=== PATIENT | female | born 1940 | race Caucasian/White ===

== ENCOUNTER 2016-12-24 15:28 | Inpatient (IN) ==
--- NOTE | 2016-12-24 15:54 | Emergency Department Note ---
Lower Extremity Injury HPI - General Chief Complaint: Extremity Injury, Lower Stated Complaint: R hip pain Time Seen by Provider: 12/24/16 15:41 Source: patient Mode of arrival: EMS Limitations: no limitations - History of Present Illness HPI Narrative: 76-year-old female presents with right hip pain from [place]. She is brought in by EMS. She is here for an open reduction internal fixation of her right hip. She fell this morning around 10:00 because she tripped while pivoting on her prosthetic left foot. 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 She also has a history of hypertension and takes blood pressure medicine. Her right hip is externally rotated. She denies any other symptoms such as chest pain, shortness of breath. She has been seen by Dr. Herndon and Dr. Hopkins for surgery today. The last time she ate was earlier this morning around 8:00. She denies history of ME, stroke, seizure. - Related Data Home Medications Medication Instructions Recorded Confirmed Aspirin [Ecotrin] 81 mg PO DAILY 12/24/16 12/24/16 Cholecalciferol (Vitamin D3) 1,000 unit PO DAILY 12/24/16 12/24/16 [Vitamin D] Cinnamon Bark [Cinnamon] 500 mg PO DAILY 12/24/16 12/24/16 Vitamin E Mixed [Vitamin E] 400 unit PO DAILY 12/24/16 12/24/16 amLODIPine [Norvasc] 10 mg PO DAILY 12/24/16 12/24/16 hydrALAZINE HCL [Hydralazine HCl] 50 mg PO DAILY 12/24/16 12/24/16 Allergies Allergy/AdvReac Type Severity Reaction Status Date / Time No Known Drug Allergies Allergy Unverified 12/24/16 15:35 Review of Systems All systems ED: reviewed and negative except as stated. 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 Right hip tender laterally. Externally rotated. Normal pulse. Limitations: no limitations General appearance: alert, in no apparent distress Head: atraumatic Eye: Present: normal appearance. Absent: conjunctival injection Neck: Present: normal inspection, full ROM Chest: Present: normal inspection, symmetric chest wall rise Respiratory: Present: normal lung sounds bilaterally Cardiovascular: Present: tachycardia, normal heart sounds Abdominal: Present: soft, normal bowel sounds. Absent: tenderness Neurological: Present: alert, oriented X3 Psychiatric: Present: normal affect, normal mood Skin: Present: warm, dry, intact Course Course Narrative: She has had a workup by [facility]. She will be taken to surgery. Vital Signs Pulse Rate 91 H 12/24/16 15:28 Respiratory Rate 16 12/24/16 15:28 Blood Pressure 198/95 12/24/16 15:28 Pulse Oximetry (%) 100 12/24/16 15:28 Pulse Rate 91 H 12/24/16 15:28 Respiratory Rate 16 12/24/16 15:28 Blood Pressure 198/95 12/24/16 15:28 Pulse Oximetry (%) 100 12/24/16 15:28 Disposition Pt seen by ELEMENTARY SECRETARY/PA only: Yes Clinical Impression: Fracture of hip Disposition: Xfer As Inpt ([facility]) Condition: Fair
[2016-12-24] MEDS ORDERED: ceFAZolin 1 GM VIAL IV SCH (16:15)
--- NOTE | 2016-12-24 16:22 | Consultation ---
DATE OF CONSULTATION: 12/24/2016 The patient is a very pleasant 76-year-old with a chief complaint of right hip pain after a same-level fall seen at [facility], diagnosed with a femoral neck fracture, displaced. She has been fairly active, even though she is having no active chest pain or shortness of breath. PAST MEDICAL HISTORY: Includes hypertension, anemia, hyperthyroidism, diabetes mellitus type 2, a prior amputation on the left side. She has had prior osteomyelitis of the left foot that was treated with the above-mentioned amputation. MEDICATIONS: 1. Cinnamon Bark 500 mg q. day. 2. Vitamin D3 1000 mg tablet q. day. 3. Vitamin B12 500 mcg tablets daily. 4. Aspirin low-dose 81 mg tablet daily. 5. Triamcinolone cream twice a day to her leg. 6. Amlodipine tablet one tablet by mouth 10 mg. 7. Hydralazine 50 mg tablet p.o. 4 times daily for hypertension. IMMUNIZATIONS: Pneumovax, she refused in 2013. ALLERGIES: She knows no known drug allergies. PAST SURGICAL HISTORY: Include an amputation of the left lower extremity. PHYSICAL EXAMINATION: GENERAL: A very pleasant 76-year-old female, alert, cooperative, gives an excellent history. EXTREMITIES: Today she does have some numbness down the right leg. She notes this has been there for some time from a prior herniated disk. She also has an amputated left lower extremity. The right leg, however, is shortened and externally rotated consistent with a femoral neck fracture. Her foot is pink and warm. She can move her toes without difficulty. LUNGS: Clear to auscultation bilaterally. CARDIOVASCULAR: Irregular rate of about 95 with some irregular rhythm, sinus. ABDOMEN: Soft, nontender. SKIN: No lacerations or abrasions. DIAGNOSTIC STUDIES: Her x-rays of the right hip show a femoral neck fracture about 10 mm above the lesser trochanter. Some osteopenia is obviously noted. DIAGNOSIS: Femoral neck fracture, displaced. PLAN: Treatment will be a cemented hemiarthroplasty. KOBE:nelson Job ID: [id number] Doc ID: [id number] Erik Jaimes MD
--- NOTE | 2016-12-24 16:28 | Brief Operative Note ---
Date of procedure: 12/24/16 Pre-op diagnosis: Right femoral neck fx Post-op diagnosis: same Procedure: Right hip cemented andre arthroplasty Grafts/Implants: Yes Anesthesia: GETA Complications: none Surgeon: Erik Jaimes Switcher: Benny Lopez Estimated blood loss (cc): 50 Specimens Removed/Pathology: none sent Condition: stable Disposition: PACU
[2016-12-24] MEDS ORDERED: TRANEXAMIC ACID 1,000 MG/10 ML VIAL IV ONE ×2 (16:36→16:45)
[2016-12-24] MEDS ORDERED: HYDROmorphone 2 MG/ML SYRINGE IV PRN ×2 (16:36→17:11)
[2016-12-24] MEDS ORDERED: POLYETHYLENE GLYCOL 3350 17 GM PACKET PO PRN (16:36)
[2016-12-24] MEDS ORDERED: ACETAMINOPHEN 325 MG TABLET PO PRN (16:36)
[2016-12-24] MEDS ORDERED: HYDROcodone/APAP 10/325MG TABLET PO PRN (16:36)
[2016-12-24] MEDS ORDERED: FLEETS ADULT ENEMA PR PRN (16:36)
[2016-12-24] MEDS ORDERED: BISACODYL 10 MG SUPP.RECT PR PRN (16:36)
[2016-12-24] MEDS ORDERED: BENZOCAINE/MENTHOL 1 LOZENGE PO PRN ×2 (16:36→17:11)
[2016-12-24] MEDS ORDERED: MAGNESIUM HYDROXIDE 30 ML ORAL.SUSP PO PRN (16:36)
[2016-12-24] MEDS ORDERED: KETOROLAC 15 MG/ML VIAL IV PRN (16:36)
[2016-12-24] MEDS ORDERED: MIDAZOLAM 2 MG/2 ML VIAL IV ONE (16:45)
[2016-12-24] MEDS ORDERED: KETAMINE 100 MG/ML ML IV ONE (16:45)
[2016-12-24] MEDS ORDERED: ONDANSETRON 4 MG/2 ML VIAL IV ONE (16:45)
[2016-12-24] MEDS ORDERED: ROPIVACAINE HCL/PF 30 ML VIAL IJ ONE (16:45)
[2016-12-24] MEDS ORDERED: LIDOCAINE HCL/PF 100 MG/5 ML SYRINGE IV ONE (16:45)
[2016-12-24] MEDS ORDERED: GLYCOPYRROLATE 0.2 MG/ML VIAL IV ONE (16:45)
[2016-12-24] MEDS ORDERED: PROPOFOL 200 MG/20 ML VIAL IV ONE (16:45)
[2016-12-24] MEDS ORDERED: IPRATROPIUM/ALBUTEROL 3 ML AMPUL.NEB NEB PRN (17:11)
[2016-12-24] MEDS ORDERED: METHOCARBAMOL 1,000 MG/10 ML VIAL IV PRN (17:11)
[2016-12-24] MEDS ORDERED: fentaNYL 100 MCG/2 ML VIAL IV PRN (17:11)
[2016-12-24] MEDS ORDERED: ONDANSETRON 4 MG/2 ML VIAL IV PRN (17:11)
[2016-12-24] MEDS ORDERED: ePHEDrine 50 MG/ML AMPUL IV PRN (17:11)
[2016-12-24] MEDS ORDERED: LACTATED RINGERS 1,000 ML IV SCH (17:15)
[2016-12-24] MEDS ORDERED: GENTAMICIN SULFATE 800 MG/20 ML VIAL IR ONE (17:32)
[2016-12-24] MEDS ORDERED: EPINEPHrine 1 MG/ML AMPUL IJ ONE (18:15)
[2016-12-24] MEDS ORDERED: METOPROLOL TARTRATE 5 MG/5 ML VIAL IV ONE ×2 (18:27→18:40)
--- NOTE | 2016-12-24 18:28 | XRay Report ---
CLINICAL INFORMATION: Postop total hip prostheses COMPARISON: None. FINDINGS: ] Right hip prostheses anatomically aligned. No osseous abnormality. [Both SI joints are unremarkable. Soft tissue swelling over the surgical site seen as expected IMPRESSION: Negative Interpreted and Authenticated by: Ramu Woods 12/24/16
[2016-12-24] MEDS ORDERED: fentaNYL 100 MCG/2 ML VIAL IV ONE (18:32)
[2016-12-24] MEDS ORDERED: hydrALAZINE 20 MG/ML VIAL IV ONE (18:50)
[2016-12-24] MEDS: ACETAMINOPHEN 1,000 MG/100 ML BOTTLE IV SCH (18:50)
[2016-12-24] MEDS: 0.45 % SODIUM CHLORIDE 1,000 ML IV SCH (20:00)
[2016-12-24] MEDS ORDERED: TEMAZEPAM 15 MG CAPSULE PO PRN (21:00)
[2016-12-24] MEDS: 0.9 % SODIUM CHLORIDE 10 ML SYRINGE IV SCH (22:44)
[2016-12-24] MEDS: SENNOSIDES 1 TABLET PO SCH (22:54)
[2016-12-24] MEDS: ASPIRIN 325 MG ENTERIC COATED TABLET PO SCH (22:55)
[2016-12-24] MEDS: DOCUSATE SODIUM 100 MG CAPSULE PO SCH (22:55)
[2016-12-25] MEDS: ACETAMINOPHEN 1,000 MG/100 ML BOTTLE IV SCH ×3 (01:08→12:05)
[2016-12-25] MEDS: 0.45 % SODIUM CHLORIDE 1,000 ML IV SCH ×4 (04:15→20:55)
[2016-12-25] MEDS: 0.9 % SODIUM CHLORIDE 10 ML SYRINGE IV SCH ×4 (06:00→20:55)
[2016-12-25] MEDS: ONDANSETRON 4 MG/2 ML VIAL IV PRN ×4 (07:30→23:30)
[2016-12-25] MEDS ORDERED: NON FORMULARY MEDICATION 1 DOSE MISCELL (Aspirin [Ecotrin] 81 MG) PO SCH (09:00)
--- NOTE | 2016-12-25 09:53 | Orthopedic Progress Note ---
Subjective Patient information: Note initiated : 12/25/16 at 9:51 am Service Date, if different from initiated Date: [] Patient: Juliann Maravilla 76 y/o F admitted on 12/24/16 for R hip pain. Chief Complaint: [no cp and no sob but feels good] Objective Vital signs: Vital Signs Temp Pulse Pulse Pulse Resp BP BP 12/25/16 08:00 98.7 F 80 12 161/77 12/25/16 04:00 97.1 F 74 14 136/77 12/25/16 00:00 97.8 F 80 18 146/81 12/24/16 21:15 92 H 16 152/75 12/24/16 20:45 94 H 16 153/74 12/24/16 20:15 94 H 16 148/73 12/24/16 20:00 97.8 F 96 H 18 153/75 12/24/16 19:45 97 H 18 160/76 12/24/16 19:30 95 H 18 154/76 12/24/16 19:15 97.8 F 95 H 18 166/79 12/24/16 18:58 98.1 F 93 H 16 193/91 12/24/16 18:21 98.1 F 99 H 16 210/98 12/24/16 18:06 98.1 F 99 H 16 179/100 12/24/16 16:20 91 H 16 198/95 12/24/16 15:28 91 H 16 198/95 Pulse Ox 12/25/16 08:00 96 12/25/16 04:00 97 12/25/16 00:00 96 12/24/16 21:15 98 12/24/16 20:45 97 12/24/16 20:15 97 12/24/16 20:00 96 12/24/16 19:45 96 12/24/16 19:30 96 12/24/16 19:15 96 12/24/16 18:58 18 L 12/24/16 18:21 18 L 12/24/16 18:06 18 L 12/24/16 16:20 100 12/24/16 15:28 100 Intake and Output 12/24/16 12/25/16 12/25/16 21:59 05:59 13:59 Intake Total 1300 / 1300 200 / 200 1000 / 1000 Output Total 100 / 100 Balance 1300 / 1300 100 / 100 1000 / 1000 Intake: IV 100 / 100 100 / 100 1000 / 1000 Sodium Chloride 0.45% 1,000 ml 1000 / 1000 @ 100 mls/hr IV .Q10H ALIYAH Rx#: [id number] Oral 100 / 100 Other 1200 / 1200 Output: Urine Catheter Amount 100 / 100 Other: Weight 180 lb Intake & Output: Intake & Output 12/24/16 12/25/16 12/25/16 21:59 05:59 13:59 Intake Total 1300 / 1300 200 / 200 1000 / 1000 Output Total 100 / 100 Balance 1300 / 1300 100 / 100 1000 / 1000 Weight 180 lb Intake: IV 100 / 100 100 / 100 1000 / 1000 Sodium Chloride 0.45% 1,000 ml 1000 / 1000 @ 100 mls/hr IV .Q10H ALIYAH Rx#: [id number] Oral 100 / 100 Other 1200 / 1200 Output: Urine Catheter Amount 100 / 100 Incision: Yes healing Incision clean and dry: Yes Dressing: Yes clean Weight bearing status: full Neurological exam IM: Yes oriented X3, Yes neurovascular intact Extremities exam IM: Yes Foot pink and warm (low hct will monitor and low kidney function will monitor and consult if not improved), Yes neurovascular intact - Labs CBC & BMP: 12/25/16 04:20 Labs: Orthopedic Labs 12/24/16 15:50 POC PT 17.6 H POC INR 1.5 H 12/25/16 04:20 Hct 27.3 L
[2016-12-25] MEDS: amLODIPine 10 MG TABLET PO SCH (10:48)
[2016-12-25] MEDS: hydrALAZINE 25 MG TABLET PO SCH (10:48)
[2016-12-25] MEDS: DOCUSATE SODIUM 100 MG CAPSULE PO SCH ×2 (10:49→20:55)
[2016-12-25] MEDS: ASPIRIN 325 MG ENTERIC COATED TABLET PO SCH ×2 (10:49→20:55)
[2016-12-25] MEDS: VITAMIN D3 1,000 UNIT TABLET PO SCH (10:56)
[2016-12-25] MEDS: VITAMIN E (DL,TOCOPHERYL ACET) 400 UNIT CAPSULE PO SCH (10:56)
[2016-12-25] MEDS: CINNAMON BARK 500 MG PO SCH (10:57)
[2016-12-25] MEDS ORDERED: 0.9 % SODIUM CHLORIDE 250 ML IV ONE (15:56)
[2016-12-25] MEDS: SENNOSIDES 1 TABLET PO SCH (20:55)
[2016-12-26] MEDS: 0.45 % SODIUM CHLORIDE 1,000 ML IV SCH ×2 (05:16→15:40)
[2016-12-26] MEDS: 0.9 % SODIUM CHLORIDE 10 ML SYRINGE IV SCH ×3 (05:29→23:01)
[2016-12-26 06:38] LABS: Blood Urea Nitrogen 64 mg/dl (8-23)
[2016-12-26] MEDS: VITAMIN E (DL,TOCOPHERYL ACET) 400 UNIT CAPSULE PO SCH (10:07)
[2016-12-26] MEDS: hydrALAZINE 25 MG TABLET PO SCH (10:08)
[2016-12-26] MEDS: ASPIRIN 325 MG ENTERIC COATED TABLET PO SCH ×2 (10:08→23:12)
[2016-12-26] MEDS: VITAMIN D3 1,000 UNIT TABLET PO SCH (10:08)
[2016-12-26] MEDS: DOCUSATE SODIUM 100 MG CAPSULE PO SCH ×2 (10:08→23:13)
[2016-12-26] MEDS: amLODIPine 10 MG TABLET PO SCH (10:08)
--- NOTE | 2016-12-26 10:33 | Orthopedic Progress Note ---
Subjective Patient information: Note initiated : 12/26/16 at 10:31 am Service Date, if different from initiated Date: [] Patient: Juliann Maravilla 76 y/o F admitted on 12/24/16 for R hip pain. Chief Complaint: [feeling better and no nausea but slow to walk and no sob] Objective Vital signs: Vital Signs Temp Pulse Pulse Resp BP BP Pulse Ox 12/26/16 09:00 92 12/26/16 07:11 98.6 F 88 16 165/88 93 12/26/16 07:00 93 12/26/16 05:00 93 12/26/16 03:27 98.4 F 77 18 133/88 94 12/26/16 03:00 94 12/26/16 01:57 PDT 96 12/26/16 01:00 PDT 96 12/26/16 00:04 157/88 12/25/16 23:40 174/92 12/25/16 23:28 99.1 F H 86 19 167/101 97 12/25/16 23:00 98 12/25/16 21:00 94 12/25/16 20:00 99.1 F H 86 17 153/92 94 12/25/16 19:00 94 12/25/16 17:00 97 12/25/16 15:43 97.7 F 16 171/82 94 12/25/16 15:00 94 12/25/16 13:55 98.0 F 78 13 165/86 94 12/25/16 13:00 94 12/25/16 11:33 96 Intake and Output 12/25/16 12/26/16 12/26/16 22:59 05:59 13:59 Intake Total Output Total Balance Intake: IV Sodium Chloride 0.45% 1,000 ml @ 100 mls/hr IV .Q10H ALIYAH Rx#: [id number] Oral Output: Urine Catheter Amount Emesis Other: Weight Intake & Output: Intake & Output 12/25/16 12/26/16 12/26/16 22:59 05:59 13:59 Intake Total Output Total Balance Weight Intake: IV Sodium Chloride 0.45% 1,000 ml @ 100 mls/hr IV .Q10H ALIYAH Rx#: [id number] Oral Output: Urine Catheter Amount Emesis Incision: Yes healing Incision clean and dry: Yes Dressing: Yes clean Weight bearing status: full Neurological exam IM: Yes oriented X3, Yes neurovascular intact Extremities exam IM: Yes Foot pink and warm (bollus normal saline 250 cc now may need dc to care center), Yes neurovascular intact - Labs CBC & BMP: 12/25/16 04:20 12/26/16 04:15 Labs: Orthopedic Labs 12/24/16 15:50 POC PT 17.6 H POC INR 1.5 H 12/25/16 04:20 Hct 27.3 L
--- NOTE | 2016-12-26 10:41 | Discharge Summary ---
Ortho Discharge - CLAY - Patient Instructions Diet: Regular Diet Activity: activity as tolerated, weight bearing as tolerated Total Hip Protocol: Follow activity instructions as provided by Physical Therapy. Dressing Care: Rober Ag - leave on for 5 days Additional Instructions: POD #2: Dressing changed by nurse and all drains have been removed. Follow up with Physical Therapy. Instructed on ROM protocol. Anticoagulation therapy risks and benefits explained. May shower with dressing covered or water proof dressing. If wound dressing becomes black, remove dressing. Pathology and risks explained. Follow up with our office in 2 weeks - Follow Up Plan Disposition: Xfer SNF Prognosis: Fair Rehab Potential: Good I certify that the patient requires SNF services: Yes Overall status at discharge: patient is progressing back to baseline - Orders For Discharge Additional Discharge Orders: Physical Therapy at Discharge - CLAY Location: Determined By Patient Toilet Riser Discharge Order Location: Determined By Patient Walker Location: Determined By Patient
[2016-12-26] MEDS ORDERED: 0.9 % SODIUM CHLORIDE 250 ML IV ONE (11:48)
[2016-12-26] MEDS: CINNAMON BARK 500 MG PO SCH (11:51)
[2016-12-26] MEDS ORDERED: 0.9 % SODIUM CHLORIDE 1,000 ML IV SCH (12:00)
--- NOTE | 2016-12-26 14:17 | Internal Medicine Consult Note ---
Medical - CN: [facility] - Data of Consult Consult date: 12/26/16 Requesting Physician: Erik Jaimes Family Provider: RAMIN COCHRAN - Consult Narrative Reason for consult: Renal Failure History of present illness: Ms. Maravilla is a 76 year old Female presented to this hospital from outside facility, [facility], with creat of 4.06, the patient underwent successful Right CLAY and is scheduled for discharge in AM to [facility] facility, The patient labs rechecked in the hospital showed creat of 4.0, bun of 64, K of 4.8, Medicine was consulted for further evaluation. The patient has a long standing history of CKD, based on her history and problem list it seems she has CKD stage 4, she is unaware of her kidney function levels, but has been following with Dr Davis (quick mixer operator) Last visit was 2-3 months ago, She has not seen him since, notes he prescribed her some medication which made her weak, and tried and also a pill which was large and very expensive, therefore stopped going to him? She is not sure what her baseline kidney function is, but notes that she has been eating and drinking well and has no problems passing urine. the patient labs 1 year ago showed renal function creat of 2.99 and BUN of 51, the patient has DM, HTN as the likely risk factors. AT present the patient has no acute concerns, she denies any chest pain, shortness of breath, abdominal pain, nausea or vomiting, has pacheco in place, has been voiding ok so before presentation. Denies any edema. 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; Medical - CN: Meds Home Medications Medication Instructions Recorded Confirmed Type Aspirin [Ecotrin] 81 mg PO DAILY 12/24/16 12/24/16 History Cholecalciferol (Vitamin D3) 1,000 unit PO DAILY 12/24/16 12/24/16 History [Vitamin D] Cinnamon Bark [Cinnamon] 500 mg PO DAILY 12/24/16 12/24/16 History Vitamin E Mixed [Vitamin E] 400 unit PO DAILY 12/24/16 12/24/16 History amLODIPine [Norvasc] 10 mg PO DAILY 12/24/16 12/24/16 History hydrALAZINE HCL [Hydralazine HCl] 50 mg PO DAILY 12/24/16 12/24/16 History Aspirin [Ecotrin] 325 mg PO DAILY #14 tab.ec 12/26/16 Rx Hydrocodone/APAP 7.5/325Mg [[place] 1 - 2 tab PO Q4HP PRN #60 tab 12/26/16 Rx 7.5/325Mg] Allergies Allergy/AdvReac Type Severity Reaction Status Date / Time No Known Drug Allergies Allergy Unverified 12/24/16 15:35 Medical - CN: Exam - Constitutional Vitals: Temp Pulse Resp BP Pulse Ox 98.2 F 91 H 14 166/91 92 12/26/16 11:11 12/26/16 11:11 12/26/16 11:11 12/26/16 11:11 12/26/16 09:00 Exam: GENERAL: The patient is a well-developed, well-nourished in no apparent distress. Is alert and oriented x3. VITAL SIGNS: Reviewed and as noted elsewhere. HEENT: Head is normocephalic and atraumatic. Extraocular muscles are intact. Pupils are equal, round, and reactive to light. Nares appeared normal. Mouth appears any without lesions. Mucous membranes are moist. NECK: Normal to inspection, Supple, No lymphadenopathy or thyromegaly. LUNGS: Air entry equal on both sides, no wheezing, crackles or rhonchi noted. No accessory muscles of respiration HEART: Regular rate and rhythm normal, S1 and S2 heard, no Gallop, S3 or Rub Noted, No Gross murmur heard. ABDOMEN: Soft, nontender, and nondistended. Positive bowel sounds. No hepatosplenomegaly was noted. EXTREMITIES: No cyanosis, clubbing, rash, lesions or edema. Left bka noted. NEUROLOGIC: Cranial nerves II through XII are grossly intact. Motor and Sensory System Grossly Intact PSYCHIATRIC: Normal affect, Normal Mood. Appropriate Behavior. SKIN: No ulceration or wounds noted, No jaundice, No rash noted. Medical - CN: Result - Labs CBC & Chem 7: 12/25/16 04:20 12/26/16 04:15 Labs: BMP 12/26/16 04:15 Sodium 131 L Potassium 4.8 Chloride 102 Carbon Dioxide 12 L BUN 64 H Creatinine 4.0 H Glucose 113 H Calcium 8.1 L Medical - CN: A/P - Narrative A/P Narrative: A/P Chronic Kidney Disease/ Renal failure: patient has history of CKD stage 4, follows with quick mixer operator. The patients last creat that we were able to verify was 2.99 done around 14 months ago, given her risk factors its likely that she has gradually progressed since then. We will try to obtain some more recent records to evaluate her recent renal function. Avoid Nephrotoxic meds, NSAIDs, Keep patient well hydrated The has a quick mixer operator and I have strongly educated the patient to follow up with him. DM- Glucose control is reasonable, sliding scale insulin Selected Entries 12/25/16 06:03 12/25/16 13:24 12/25/16 18:03 Finger Stick Blood Glucose 131 H 146 H 119 12/25/16 23:32 12/26/16 05:28 12/26/16 11:53 Finger Stick Blood Glucose 142 H 107 143 H HTN- BP on the higher end Will avoid adjusting home bp meds while acutely ill The rest of the patients chr condition seem stable. Will review recent labs and revisit the case if there is acute worsening of renal function, warranting any changes in meds. The patient would benefit from close follow up with Nephrology within 1-2 weeks of discharge.
[2016-12-26] MEDS ORDERED: DEXTROSE 31 GM ORAL.SUSP PO PRN ×2 (14:32→20:35)
[2016-12-26] MEDS ORDERED: DEXTROSE 50% 50 ML VIAL IV PRN ×2 (14:32→20:35)
[2016-12-26] MEDS ORDERED: INSULIN LISPRO 1 UNIT/0.01 ML UNIT SQ SCH (17:00)
[2016-12-26 18:01] LABS: Basophils # (Auto) 0 K/mcL (0.0-0.3); Basophils % (Auto) 0.1 % (0.0-2.0); Eosinophils # (Auto) 0 K/mcL (0.0-0.7); Eosinophils % (Auto) 0.5 % (0.0-7.0); Lymphocytes # (Auto) 0.6 K/mcL (1.5-4.8); Lymphocytes % (Auto) 5.4 % (15.5-49.0); Mean Cell Volume 87.2 fL (80.0-100.0); Mean Corpuscular HGB Conc 33.5 g/dL (31.0-36.0); Mean Corpuscular Hemoglobin 29.2 pg (26.0-34.0); Monocytes # (Auto) 0.5 K/mcL (0.1-0.9); Platelet Count 180 K/mcL (140-440); RBC 3.12 M/mcL (4.00-5.20); Red Cell Distribution Width 14.4 % (11.5-14.5)
[2016-12-26 18:24] LABS: ALT/SGPT 6 U/l (0-40); Albumin 3.1 gm/dL (3.2-5.2); Albumin/Globulin Ratio 0.9 (1.0-2.3); Alkaline Phosphatase 58 U/L (39-117); Bilirubin,Direct < 0.2 mg/dL (0.0-0.3); Blood Urea Nitrogen 65 mg/dl (8-23); Gamma Glutamyl Transpeptidase 12 U/L (5-36); Magnesium 1.8 mg/dL (1.6-2.5); Uric Acid 7.3 mg/dL (2.5-8.0)
[2016-12-26] MEDS ORDERED: SODIUM BICARBONATE VIAL 150 MEQ in DEXTROSE 5% IN WATER 850 ML IV SCH (19:00)
[2016-12-26] MEDS ORDERED: POLYETHYLENE GLYCOL 3350 17 GM PACKET PO PRN (20:35)
[2016-12-26] MEDS ORDERED: ACETAMINOPHEN 325 MG TABLET PO PRN (20:35)
[2016-12-26] MEDS ORDERED: MAGNESIUM HYDROXIDE 30 ML ORAL.SUSP PO PRN (20:35)
[2016-12-26] MEDS ORDERED: BISACODYL 10 MG SUPP.RECT PR PRN (20:35)
[2016-12-26] MEDS ORDERED: HYDROmorphone 2 MG/ML SYRINGE IV PRN (20:35)
[2016-12-26] MEDS ORDERED: TEMAZEPAM 15 MG CAPSULE PO PRN (20:35)
[2016-12-26] MEDS ORDERED: ONDANSETRON 4 MG/2 ML VIAL IV PRN (20:35)
[2016-12-26] MEDS ORDERED: BENZOCAINE/MENTHOL 1 LOZENGE PO PRN (20:35)
[2016-12-26] MEDS: SODIUM BICARBONATE VIAL 150 MEQ in DEXTROSE 5% IN WATER 850 ML IV SCH (21:30)
[2016-12-26] MEDS ORDERED: POTASSIUM CHLORIDE 20 MEQ in DEXTROSE 5% IN WATER 250 ML IV PRN (21:31)
[2016-12-26 22:31] LABS: ABG Methemoglobin 0.3 % (0.4-1.5); VBG HCO3 12.4 mmol/L (24.0-28.0); VBG Oxygen Saturation 76.6 % (40.0-70.0); VBG PCO2 30.5 mmHg (41.0-51.0); VBG PH 7.23 U (7.32-7.42); VBG PO2 48 mmHg (25-40); VBG Total CO2 13.3 mmol/L (25.0-29.0)
[2016-12-26] MEDS: INSULIN LISPRO 1 UNIT/0.01 ML UNIT SQ SCH (23:12)
[2016-12-26] MEDS: SENNOSIDES 1 TABLET PO SCH (23:15)
[2016-12-26] MEDS ORDERED: FUROSEMIDE 40 MG/4 ML VIAL IV ONE (23:18)
[2016-12-27] MEDS: FUROSEMIDE 40 MG/4 ML VIAL IV SCH ×4 (00:12→22:53)
[2016-12-27 01:37] LABS: Blood Urea Nitrogen 67 mg/dl (8-23)
[2016-12-27] MEDS: SODIUM BICARBONATE VIAL 150 MEQ in DEXTROSE 5% IN WATER 850 ML IV SCH ×4 (03:35→20:44)
[2016-12-27 05:48] LABS: Basophils # (Auto) 0 K/mcL (0.0-0.3); Basophils % (Auto) 0.1 % (0.0-2.0); Eosinophils # (Auto) 0.1 K/mcL (0.0-0.7); Eosinophils % (Auto) 1.2 % (0.0-7.0); Granulocytes % (Auto) 87.2 % (38.0-78.0); Lymphocytes # (Auto) 0.5 K/mcL (1.5-4.8); Lymphocytes % (Auto) 5.8 % (15.5-49.0); Mean Corpuscular HGB Conc 33.4 g/dL (31.0-36.0); Mean Corpuscular Hemoglobin 29.1 pg (26.0-34.0); Monocytes # (Auto) 0.5 K/mcL (0.1-0.9); Monocytes % (Auto) 5.7 % (1.0-12.0); Platelet Count 161 K/mcL (140-440); RBC 2.86 M/mcL (4.00-5.20)
[2016-12-27 06:56] LABS: ALT/SGPT < 5 U/l (0-40); Albumin 2.8 gm/dL (3.2-5.2); Albumin/Globulin Ratio 0.9 (1.0-2.3); Alkaline Phosphatase 54 U/L (39-117); Bilirubin,Direct < 0.2 mg/dL (0.0-0.3); Blood Urea Nitrogen 66 mg/dl (8-23); Gamma Glutamyl Transpeptidase 11 U/L (5-36); Magnesium 1.8 mg/dL (1.6-2.5); Uric Acid 7.3 mg/dL (2.5-8.0)
--- NOTE | 2016-12-27 07:02 | Operative Note ---
DATE OF OPERATION: 12/24/2016 PREOPERATIVE DIAGNOSIS: Right femoral neck fracture with a same level fall today. POSTOPERATIVE DIAGNOSIS: Right femoral neck fracture with a same level fall today. PROCEDURE: Right hip hemiarthroplasty with a superior posterior approach. SURGEON: Erik Jaimes MD SPIRAL WINDER: Saroj Lopez PA-C. ANESTHESIA: General LMA anesthesia. ANESTHETIS: Dr. Norris. ESTIMATED BLOOD LOSS: About 100 mL IMPLANTS: A size 5 cemented stem from [employer] with a collar with a neutral neck length and a 47 mm head. FINDINGS: A very pleasant 76-year-old female who had a right hip that was obviously deformed. After being sterilely prepped and draped, we confirmed this as the operative site by initials and timeout and x-rays. Once confirmed, we then noted the patient received 1 gram of Ancef and 1 gram of tranexamic acid. Once this was done, we then made a superior posterior approach through the muscle layer, placed a Charnley retractor and exposed the superior capsule, which was then released. We then made the neck cut at 10 mm proximal to the lesser trochanter. Once done, we then removed the ball without difficulty. We then removed any remnants or debris intraarticularly and then broached the femur, broached up to a size 5 and trialed a size 5 with a neutral neck length which seemed to be the most appropriate and seemed to be very stable through range of motion. We irrigated thoroughly and then I cemented into place a size 5 stem, retrialed the neutral neck length. This seemed to be the appropriate size up to 80 to 90 degrees of internal rotation before any subluxation. The tension appeared to be very nice and we could make leg length measurements at the knee only. We irrigated thoroughly and implanted a neutral neck length with a 47 mm unipolar ball. The capsule was then repaired after reducing the hip and we repaired the piriformis and obturator internus. We irrigated thoroughly and repaired the fascial layer with #1 StrataFix, closed the skin with 0 Vicryl and Faustino's fascia and 2-0 Vicryl in the subcutaneous and maricarmen superficially. The patient tolerated this well. Sterile bandage was applied. RBH:atilio Job ID: [id number] Doc ID: [id number] Erik Jaimes MD
[2016-12-27] MEDS: 0.9 % SODIUM CHLORIDE 10 ML SYRINGE IV SCH ×3 (07:07→20:56)
[2016-12-27] MEDS: INSULIN LISPRO 1 UNIT/0.01 ML UNIT SQ SCH ×5 (09:18→20:56)
[2016-12-27] MEDS: hydrALAZINE 25 MG TABLET PO SCH (09:19)
[2016-12-27] MEDS: DOCUSATE SODIUM 100 MG CAPSULE PO SCH ×2 (09:19→20:55)
[2016-12-27] MEDS: VITAMIN D3 1,000 UNIT TABLET PO SCH ×2 (09:19→09:43)
[2016-12-27] MEDS: VITAMIN E (DL,TOCOPHERYL ACET) 400 UNIT CAPSULE PO SCH ×2 (09:19→09:44)
[2016-12-27] MEDS: ASPIRIN 325 MG ENTERIC COATED TABLET PO SCH ×2 (09:19→20:55)
[2016-12-27] MEDS: amLODIPine 10 MG TABLET PO SCH (09:19)
[2016-12-27] MEDS: [UNRECOGNIZED DRUG - OTHER] PO SCH (09:43)
--- NOTE | 2016-12-27 12:23 | Consultation ---
DATE OF CONSULTATION: 12/27/2016 REASON FOR CONSULTATION: Metabolic acidosis. The patient is a 76-year-old female with a past medical history significant for longstanding hypertension. She believes that she does not have diabetes and her blood sugar does not high either. I had seen her last time in 06/2015 in the office and then she has not had any followup since then. She had a fairly rapid decline in renal function with a serum creatinine of 0.9 in 06/2012, 1.34 in 08/2013 and 2.85 in 04/2015 and then 2.7 in 05/2015. She was on metformin and lisinopril which were discontinued. Since then she has not followed up with me. She was hospitalized for a right hip fracture. She had surgery and postoperatively labs were checked and she was found to have a serum creatinine of 4.0 with a CO2 of 12. Subsequently, it was 10 and phosphorus elevated at 6.0. For that reason, a renal artery consultation was obtained. PAST MEDICAL HISTORY: 1. Chronic kidney disease stage 4, severe. 2. Essential hypertension. 3. Type 2 diabetes, but she is not taking any medications and glipizide made her hypoglycemic in the past. 4. Atrial fib with two depolarizations. 5. Hyperlipidemia. 6. Anemia. 7. Pain in the left foot. 8. Hyperparathyroidism. PAST SURGICAL HISTORY: She did have a left BKA after an infection in her foot. FAMILY HISTORY: Mother had diabetes. SOCIAL HISTORY: The patient does not smoke. No alcohol. She has two children living with a spouse. She is . She is retired. ALLERGIES: No known drug allergies. CURRENT MEDICATIONS ON ADMISSION: 1. Amlodipine 10 mg once daily. 2. Enteric-coated aspirin 325 mg twice daily. 3. Hydralazine 50 mg. 4. Dilaudid p.r.n.4. 5. Vitamin D 1000 units daily. 6. Vitamin E 400 units once daily. PHYSICAL EXAMINATION: GENERAL: Alert, oriented x3 in no apparent distress. VITAL SIGNS: Blood pressure 166/89 with a pulse rate of 93 and temperature 99.0, pulse oximetry of 90% on 2 liters. HEENT: NC/AT. PERRL. EOMI. No pallor, no cyanosis and no icterus. Fundus examination is not performed. External canals and tympanic membranes normal. Oral cavity appears normal. Normal mucosa. NECK: Supple. No jugular venous distention. No lymphadenopathy. No thyromegaly. No carotid bruits. LUNGS: Decreased air entry bilaterally. No rales or rhonchi heard. CARDIAC: S1, S2 heard. No S3, S4. No murmurs. No rubs. ABDOMEN: Soft, nontender. No organomegaly. Positive bowel sounds. No mass. No rebound. EXTREMITIES: Showed trace edema. She has a left BKA. NEURO: Grossly intact. LABORATORY DATA: White count is 8.8 with hemoglobin of 8.3 and a platelet count of 161. Sodium 134, potassium 4.0, chloride 100, CO2 15, BUN 66 with a creatinine of 4.1, calcium is 7.6. LDH was _27 with an albumin of 2.8. ASSESSMENT AND PLAN: 1. Severe metabolic acidosis, possibly secondary to advanced kidney disease and also surgical stress. The lactic acid level was 0.7. Her VBG shows a pH of 7.23. Her pCO2 was 48. We started her on intravenous bicarbonate drip and she has done fairly well. She will be switched over to oral bicarbonate. 2. Chronic kidney disease with some deterioration, possibly related to surgery. Her blood pressures have been fairly stable. I will check an ultrasound of the kidneys and hepatitis serology. 3. Hypertension. Blood pressures are slightly high. I have started her on Lasix to help with her blood pressure. 4. It is possible that she would drop her potassium and correct her metabolic acidosis. I would continue with p.r.n. potassium needs. Thank you, Dr. Shabazz for referring this patient for consultation. ELIAN:atilio Job ID: [id number] Doc ID: [id number] Salomon Shabazz MD
--- NOTE | 2016-12-27 13:18 | Internal Med Progress Note ---
Medical - PN: Subj Patient information: Note initiated : 12/27/16 at 1:15 pm Service Date, if different from initiated Date: [] Patient: Juliann Maravilla 76 y/o F admitted on 12/24/16 for R Hip Pain/Right Femoral Neck Fracture. Chief Complaint: [] Interval history: Ms. Maravilla is a 76 year old Female presented to this hospital from outside facility, [facility], with creat of 4.06, the patient underwent successful Right CLAY and is scheduled for discharge in AM to SNF facility, The patient labs rechecked in the hospital showed creat of 4.0, bun of 64, K of 4.8, Medicine was consulted for further evaluation. The patient has a long standing history of CKD, based on her history and problem list it seems she has CKD stage 4, she is unaware of her kidney function levels, but has been following with Dr Davis (offset label rewinder) Last visit was 2-3 months ago, She has not seen him since, notes he prescribed her some medication which made her weak, and tried and also a pill which was large and very expensive, therefore stopped going to him? She is not sure what her baseline kidney function is, but notes that she has been eating and drinking well and has no problems passing urine. the patient labs 1 year ago showed renal function creat of 2.99 and BUN of 51, the patient has DM, HTN as the likely risk factors. AT present the patient has no acute concerns, she denies any chest pain, shortness of breath, abdominal pain, nausea or vomiting, has pacheco in place, has been voiding ok so before presentation. Denies any edema. December 27 Patient seen examined, patient this AM had no complaints, I reviewed the plan of c are with her and need for IV bicarbonate therapy, as well as follow up with a offset label rewinder. The patient and her did not believe that her kidney issues need to be addressed, They were willing to signout today and go home. 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 Pertinent ROS: Denies headache, dizziness Denies chest pain, palpitations Denies cough or shortness of breath Denies abdominal pain, nausea or vomiting. - Constitutional Vitals: Vital Signs Temp Pulse Resp BP Pulse Ox 99.2 F H 103 H 16 142/80 95 12/27/16 11:55 12/27/16 08:44 12/27/16 11:55 12/27/16 11:55 12/27/16 13:00 Period Temp Pulse Resp BP Sys/Olson Pulse Ox Last 24 Hr 98.0 F-100.6 F 88-103 15-24 133-166/75-89 88-99 Intake and Output 12/26/16 12/27/16 12/27/16 21:59 05:59 13:59 Intake Total 1653 / 1653 912 / 912 Output Total 450 / 450 685 / 685 450 / 450 Balance 1203 / 1203 227 / 227 -450 / -450 Weight 179 lb 14.4 oz Intake & Output: Intake & Output 12/26/16 12/27/16 12/27/16 21:59 05:59 13:59 Intake Total 1653 / 1653 912 / 912 Output Total 450 / 450 685 / 685 450 / 450 Balance 1203 / 1203 227 / 227 -450 / -450 Weight 179 lb 14.4 oz Intake: IV 933 / 933 912 / 912 Sodium Chloride 0.9% 1,000 ml @ 837 / 837 100 mls/hr IV .Q10H [facility] Rx#: [id number] Sodium Bicarbonate Vial 150 Meq 912 / 912 In Dextrose 5% in Water 850 ml @ 150 mls/hr IV Q20H [facility] Rx#: [id number] Oral 720 / 720 Output: Urine Catheter Amount 225 / 225 685 / 685 150 / 150 Void Amount 225 / 225 300 / 300 Other: Meal Dinner Breakfast Percent of Meal Consumed 100% 75% Feeding Ability Independent # Voids 1 Exam: Constitutional; Afebrile, cooperative, alert, not in distress. Eyes- No icterus, , No periorbital swelling Ears- Ext ear normal, hearing normal to conversation. Neck- Midline trachea, supple Respiratory system: Air Entry equal on both sides, No crackles or wheezing, no rhonchi. CVS- Rate rhythm regular, S1,S2 heard, no gallop, no rub. 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 Medical - PN: Obj Da - Labs CBC & Chem 7: 12/27/16 04:10 12/27/16 04:10 Labs: Abnormal Lab Results 12/27/16 12/27/16 12/26/16 04:10 04:10 23:00 RBC 2.86 L Hgb 8.3 L Hct 24.8 L Gran % 87.2 H Lymph % (Auto) 5.8 L Gran # Lymph # (Auto) 0.5 L POC PT POC INR ABG Methemoglobin VBG pH VBG pCO2 VBG pO2 VBG HCO3 VBG Total CO2 VBG O2 Saturation VBG Base Excess Carboxyhemoglobin Total Hemoglobin Sodium Carbon Dioxide 15 L 12 L Anion Gap 19.0 H 21.0 H BUN 66 H 67 H Creatinine 4.1 H 4.2 H Glucose 165 H 167 H Calcium 7.6 L 7.8 L Phosphorus 5.4 H AST Lactate Dehydrogenase 527 H Total Protein 5.8 L Albumin 2.8 L Albumin/Globulin Ratio 0.9 L 12/26/16 12/26/16 12/26/16 21:37 17:14 17:14 RBC 3.12 L Hgb 9.1 L Hct 27.2 L Gran % 89.0 H Lymph % (Auto) 5.4 L Gran # 9.4 H Lymph # (Auto) 0.6 L POC PT POC INR ABG Methemoglobin 0.3 L VBG pH 7.23 L VBG pCO2 30.5 L VBG pO2 48 H VBG HCO3 12.4 L VBG Total CO2 13.3 L VBG O2 Saturation 76.6 H VBG Base Excess -14.0 L Carboxyhemoglobin 2.9 H Total Hemoglobin 8.8 L Sodium 129 L Carbon Dioxide 10 L* Anion Gap 20.0 H BUN 65 H Creatinine 4.0 H Glucose 131 H Calcium 8.1 L Phosphorus 6.0 H* AST 46 H Lactate Dehydrogenase 622 H Total Protein Albumin 3.1 L Albumin/Globulin Ratio 0.9 L 12/26/16 12/25/16 12/24/16 04:15 04:20 15:50 RBC Hgb Hct 27.3 L Gran % Lymph % (Auto) Gran # Lymph # (Auto) POC PT 17.6 H POC INR 1.5 H ABG Methemoglobin VBG pH VBG pCO2 VBG pO2 VBG HCO3 VBG Total CO2 VBG O2 Saturation VBG Base Excess Carboxyhemoglobin Total Hemoglobin Sodium 131 L Carbon Dioxide 12 L Anion Gap 17.0 H BUN 64 H Creatinine 4.0 H Glucose 113 H Calcium 8.1 L Phosphorus AST Lactate Dehydrogenase Total Protein Albumin Albumin/Globulin Ratio Meds: Medications Acetaminophen (Tylenol) 650 mg PO Q6HP PRN PRN Reason: PAIN/FEVER > 101 Hydrocodone Bitart/Acetaminophen ([place] 10/325mg) 0 tab PO Q4HP PRN PRN Reason: Pain Amlodipine Besylate (Norvasc) 10 mg PO DAILY [facility] Last Admin: 12/27/16 09:19 Dose: 10 mg Aspirin (Ecotrin) 325 mg PO BID [facility] Last Admin: 12/27/16 09:19 Dose: 325 mg Bisacodyl (Dulcolax) 10 mg NC Q2-3DAYS PRN PRN Reason: Constipation Calcium Carbonate/Glycine (Tums) 1,500 mg CHEWED TIDCC [facility] Dextrose (Dextrose 50%) 0 ml IV UD PRN PRN Reason: Hypoglycemia Diagnostic Test (Pha) (Accu-Chek) 1 each FS ACHS [facility] Last Admin: 12/27/16 09:18 Dose: 1 each Docusate Sodium (Colace) 100 mg PO BID [facility] Last Admin: 12/27/16 09:19 Dose: 100 mg Furosemide (Lasix) 40 mg IV Q8 [facility] Last Admin: 12/27/16 07:06 Dose: 40 mg Glucose (Insta-Glucose) 15 gm PO PRN PRN PRN Reason: Hypoglycemia Hydralazine HCl (Apresoline) 50 mg PO DAILY [facility] Last Admin: 12/27/16 09:19 Dose: 50 mg Hydromorphone HCl (Dilaudid) 0 mg IV Q2HP PRN PRN Reason: Pain Potassium Chloride 20 meq/ (Dextrose) 260 mls @ 130 mls/hr IV PRN PRN PRN Reason: if K < 4 Sodium Bicarbonate 150 meq/ (Dextrose) 1,000 mls @ 150 mls/hr IV Q6H [facility] Last Admin: 12/27/16 07:06 Dose: Not Given Insulin Human Lispro (Humalog) 0 unit SQ ACHS [facility] PRN Reason: Protocol Last Admin: 12/27/16 09:44 Dose: Not Given Magnesium Hydroxide (Milk Of Magnesia) 30 ml PO BIDP PRN PRN Reason: Constipation Ondansetron HCl (Zofran) 4 mg IV Q4HP PRN PRN Reason: Nausea And Vomiting Cinnamon Bard 500 Mg (Capsule) 1 dose PO DAILY [facility] Last Admin: 12/27/16 09:43 Dose: Not Given Polyethylene Glycol (Miralax) 17 gm PO DAILYP PRN PRN Reason: Constipation Senna (Senokot) 2 tab PO HS [facility] Last Admin: 12/26/16 23:15 Dose: 2 tab Sodium Bicarbonate (Sodium Bicarbonate) 1,300 mg PO TID [facility] Sodium Chloride (Saline Flush) 10 ml IV Q8 [facility] Last Admin: 12/27/16 07:07 Dose: 10 ml Temazepam (Restoril) 15 mg PO HSP PRN PRN Reason: Insomnia Throat Lozenges (Cepacol) 1 lozenge PO PRN PRN PRN Reason: Sore Throat Vitamin D (Vitamin D3) 1,000 unit PO DAILY [facility] Last Admin: 12/27/16 09:43 Dose: Not Given Vitamin E (Vitamin E) 400 unit PO DAILY [facility] Last Admin: 12/27/16 09:44 Dose: Not Given - ABG Interpretation ABG results: 12/26/16 21:37 ABG Methemoglobin 0.3 L VBG pH 7.23 L VBG pCO2 30.5 L VBG pO2 48 H VBG HCO3 12.4 L VBG Total CO2 13.3 L VBG O2 Saturation 76.6 H VBG Base Excess -14.0 L Medical - PN: A/P - Time Spent With Patient Total time spent is greater than 50% in coordination of care (as documented) at patient's floor/unit and/or counseling patient: - Narrative A/P Narrative: A/P CKd stage 4 Right hip fracture s/p replacement Severe metabolic acidosis DM uncontrolled HTN HLD fever Plan Patient has severe acidosis secondary to his REnal failiure Appreciate nehprology input, on iv bicarbonate drip for now, will add oral meds, D/c drip in AM, patient will need bicarbonate supplementation as discharge check cxr for fever, check procalcitonin. atelectasiss? Cover glucose with insulin if patietn allows, Patient has declined the need for statin therapy. BP seems stable, continue hydralazine. DVT ASA 325bid as per Ortho protocol Renal CArb consistent Diet. Plan for d/c to SNF when off bicarb drip. Medical - PN: Qual - VTE Deep Vein Thrombosis/Pulmonary Embolism Present on Admission: No
[2016-12-27] MEDS: CALCIUM CARBONATE 500 MG TAB.CHEW CHEWED SCH ×3 (13:44→19:28)
[2016-12-27] MEDS: SODIUM BICARBONATE 650 MG TABLET PO SCH ×3 (13:52→20:55)
--- NOTE | 2016-12-27 13:58 | XRay Report ---
INDICATION: Fever TECHNIQUE: AP chest x-ray,portable semiupright COMPARISON: None FINDINGS:Slightly elevated left hemidiaphragm. Mild left basilar parenchymal density suggests atelectasis. Lungs are otherwise negative. Right lung is normal. Heart size is at the upper limits of normal. No pulmonary edema or pulmonary congestion. Deedee and mediastinum are negative. No evidence for pleural fluid IMPRESSION: 1. Mildly elevated left hemidiaphragm and mild left basilar atelectasis 2. Otherwise negative examination Interpreted and Authenticated by: Ramu Hidalgo 12/27/16
[2016-12-27 14:03] LABS: Blood Urea Nitrogen 68 mg/dl (8-23)
[2016-12-27] MEDS ORDERED: POTASSIUM CHLORIDE 20 MEQ TABLET PO ONE (14:31)
[2016-12-27] MEDS ORDERED: SODIUM BICARBONATE VIAL 150 MEQ in DEXTROSE 5% IN WATER 850 ML IV SCH (15:00)
[2016-12-27 19:13] LABS: Appearance,Urine HAZY; Bacteria,Urine 0 /hpf (0); Bilirubin,Urine NEG (NEG); Color,Urine STRAW; Glucose,Urine (UA) 50 mg/dL (NEG); Leukocyte Esterase,Urine 75 /uL (NEG); Mucus,Urine FEW /hpf (0); Nitrate,Urine NEG (NEG); Protein,Urine 100 mg/dL (NEG); Urine Blood 0.03 mg/dL (<0.03); Urine RBC 3 /hpf (0-1); Urine Squamous Epithelial Cell 2 /hpf (0-4); Urine WBC 34 /hpf (0-4); Urobilinogen,Urine NEG (NEG)
[2016-12-27] MEDS: SENNOSIDES 1 TABLET PO SCH (20:55)
[2016-12-28] MEDS ORDERED: METOPROLOL TARTRATE 5 MG/5 ML VIAL IV PRN (01:09)
[2016-12-28] MEDS ORDERED: METOPROLOL TARTRATE 5 MG/5 ML VIAL IV ONE ×3 (01:14→04:40)
[2016-12-28] MEDS ORDERED: MAGNESIUM SULFATE 8.12 MEQ in DEXTROSE 5% IN WATER 50 ML IV ONE (01:43)
[2016-12-28] MEDS ORDERED: MAGNESIUM SULFATE 8.12 MEQ/2 ML VIAL ONE (02:27)
[2016-12-28] MEDS: SODIUM BICARBONATE VIAL 150 MEQ in DEXTROSE 5% IN WATER 850 ML IV SCH ×2 (04:00→18:47)
[2016-12-28 06:36] LABS: Basophils # (Auto) 0 K/mcL (0.0-0.3); Basophils % (Auto) 0.1 % (0.0-2.0); Eosinophils # (Auto) 0.1 K/mcL (0.0-0.7); Eosinophils % (Auto) 1.7 % (0.0-7.0); Lymphocytes # (Auto) 0.4 K/mcL (1.5-4.8); Lymphocytes % (Auto) 4.5 % (15.5-49.0); Mean Cell Volume 87.3 fL (80.0-100.0); Mean Corpuscular HGB Conc 33.4 g/dL (31.0-36.0); Mean Corpuscular Hemoglobin 29.2 pg (26.0-34.0); Monocytes # (Auto) 0.5 K/mcL (0.1-0.9); Monocytes % (Auto) 5.7 % (1.0-12.0); Platelet Count 186 K/mcL (140-440); RBC 2.97 M/mcL (4.00-5.20); Red Cell Distribution Width 14.4 % (11.5-14.5)
[2016-12-28] MEDS: 0.9 % SODIUM CHLORIDE 10 ML SYRINGE IV SCH ×3 (06:36→23:03)
[2016-12-28] MEDS: FUROSEMIDE 40 MG/4 ML VIAL IV SCH ×2 (06:36→18:48)
[2016-12-28] MEDS: INSULIN LISPRO 1 UNIT/0.01 ML UNIT SQ SCH ×4 (07:21→21:09)
[2016-12-28 07:24] LABS: ALT/SGPT < 5 U/l (0-40); Albumin 2.8 gm/dL (3.2-5.2); Albumin/Globulin Ratio 0.9 (1.0-2.3); Alkaline Phosphatase 54 U/L (39-117); Bilirubin,Direct < 0.2 mg/dL (0.0-0.3); Blood Urea Nitrogen 66 mg/dl (8-23); Gamma Glutamyl Transpeptidase 10 U/L (5-36); Magnesium 1.9 mg/dL (1.6-2.5); Uric Acid 7.3 mg/dL (2.5-8.0)
[2016-12-28 07:25] LABS: Hepatitis A Antibody IgM NON REACTIVE (NEGATIVE); Hepatitis B Core IgM NON REACTIVE (NEGATIVE); Hepatitis B Surface Antigen NEGATIVE (NEGATIVE); Hepatitis C Virus Antibody NON REACTIVE (NEGATIVE)
[2016-12-28] MEDS: SODIUM BICARBONATE 650 MG TABLET PO SCH ×3 (08:01→21:08)
[2016-12-28] MEDS: VITAMIN E (DL,TOCOPHERYL ACET) 400 UNIT CAPSULE PO SCH (08:01)
[2016-12-28] MEDS: VITAMIN D3 1,000 UNIT TABLET PO SCH (08:01)
[2016-12-28] MEDS: hydrALAZINE 25 MG TABLET PO SCH (08:01)
[2016-12-28] MEDS: DOCUSATE SODIUM 100 MG CAPSULE PO SCH ×2 (08:01→21:08)
[2016-12-28] MEDS: CALCIUM CARBONATE 500 MG TAB.CHEW CHEWED SCH ×3 (08:01→18:35)
[2016-12-28] MEDS: amLODIPine 10 MG TABLET PO SCH (08:01)
[2016-12-28] MEDS: ASPIRIN 325 MG ENTERIC COATED TABLET PO SCH ×2 (08:02→21:08)
[2016-12-28] MEDS: HYDROcodone/APAP 10/325MG TABLET PO PRN (08:09)
[2016-12-28] MEDS ORDERED: POTASSIUM CHLORIDE 20 MEQ PACKET PO ONE (08:21)
[2016-12-28] MEDS ORDERED: METOPROLOL TARTRATE 25 MG TABLET PO ONE (13:15)
[2016-12-28] MEDS: [UNRECOGNIZED DRUG - OTHER] PO SCH (13:16)
[2016-12-28] MEDS: METOPROLOL TARTRATE 25 MG TABLET PO SCH ×2 (13:20→21:08)
--- NOTE | 2016-12-28 13:24 | Internal Med Progress Note ---
Medical - PN: Subj Patient information: Note initiated : 12/28/16 at 1:21 pm Service Date, if different from initiated Date: [] Patient: Juliann Maravilla 76 y/o F admitted on 12/24/16 for R Hip Pain/Right Femoral Neck Fracture. Chief Complaint: [] Interval history: Ms. Maravilla is a 76 year old Female presented to this hospital from outside facility, [facility], with creat of 4.06, the patient underwent successful Right CLAY and is scheduled for discharge in AM to SNF facility, The patient labs rechecked in the hospital showed creat of 4.0, bun of 64, K of 4.8, Medicine was consulted for further evaluation. The patient has a long standing history of CKD, based on her history and problem list it seems she has CKD stage 4, she is unaware of her kidney function levels, but has been following with Dr Davis (privacy analyst) Last visit was 2-3 months ago, She has not seen him since, notes he prescribed her some medication which made her weak, and tried and also a pill which was large and very expensive, therefore stopped going to him? She is not sure what her baseline kidney function is, but notes that she has been eating and drinking well and has no problems passing urine. the patient labs 1 year ago showed renal function creat of 2.99 and BUN of 51, the patient has DM, HTN as the likely risk factors. AT present the patient has no acute concerns, she denies any chest pain, shortness of breath, abdominal pain, nausea or vomiting, has pacheco in place, has been voiding ok so before presentation. Denies any edema. December 27 Patient seen examined, patient this AM had no complaints, I reviewed the plan of c are with her and need for IV bicarbonate therapy, as well as follow up with a privacy analyst. The patient and her did not believe that her kidney issues need to be addressed, They were willing to signout today and go home. 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 December 28 patient seen examined, no acute complaints, noted overnight issues with the patient having SVT, the patient has had multipl.e rounds of SVT overnight, pt was asymptomatic during these spells Reviewed these with the patient, who attributes these to not taking the fish oil supplement they are used to takign at home. I have started the patient on beta blockers but the patient is not keen on taking those [place] [facility], he will use the dietary supplements for bp and heart when discharged. the patients bicarb level is now > 20, d/c drip. and continue with oral bicarb. Educated the need for same, I hope they continue this medication Pertinent ROS: Denies headache, dizziness Denies chest pain, palpitations Denies cough or shortness of breath Denies abdominal pain, nausea or vomiting. - Constitutional Vitals: Vital Signs Temp Pulse Resp BP Pulse Ox 98.8 F 121 H 18 131/74 88 L 12/28/16 12:00 12/28/16 08:00 12/28/16 12:00 12/28/16 12:00 12/28/16 12:00 Period Temp Pulse Resp BP Sys/Olson Pulse Ox Last 24 Hr 97.5 F-99.5 F 74-157 16-20 124-161/71-97 2-98 Intake and Output 12/27/16 12/28/16 12/28/16 21:59 05:59 13:59 Intake Total 1180 / 1180 1360 / 1360 Output Total 426 / 426 351 / 351 250 / 250 Balance 754 / 754 1009 / 1009 -250 / -250 Weight 183 lb Intake & Output: Intake & Output 12/27/16 12/28/16 12/28/16 21:59 05:59 13:59 Intake Total 1180 / 1180 1360 / 1360 Output Total 426 / 426 351 / 351 250 / 250 Balance 754 / 754 1009 / 1009 -250 / -250 Weight 183 lb Intake: IV 1000 / 1000 1000 / 1000 Sodium Bicarbonate Vial 150 Meq 1000 / 1000 1000 / 1000 In Dextrose 5% in Water 850 ml @ 150 mls/hr IV Q6H [facility] Rx#: [id number] Oral 180 / 180 360 / 360 Output: Void Amount 425 / 425 350 / 350 250 / 250 # of times incontinent of urine Urine/Stool Mix Other: # Voids 1 Exam: Constitutional; Afebrile, cooperative, alert, not in distress. Eyes- No icterus, , No periorbital swelling Ears- Ext ear normal, hearing normal to conversation. Neck- Midline trachea, supple Respiratory system: Air Entry equal on both sides, No crackles or wheezing, no rhonchi. CVS- Rate rhythm regular, S1,S2 heard, no gallop, no rub. 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 Medical - PN: Obj Da - Labs CBC & Chem 7: 12/28/16 04:35 12/28/16 04:35 Labs: Abnormal Lab Results 12/28/16 12/28/16 12/27/16 04:35 04:35 18:21 RBC 2.97 L Hgb 8.7 L Hct 26.0 L Gran % 88.0 H Lymph % (Auto) 4.5 L Gran # Lymph # (Auto) 0.4 L ABG Methemoglobin VBG pH VBG pCO2 VBG pO2 VBG HCO3 VBG Total CO2 VBG O2 Saturation VBG Base Excess Carboxyhemoglobin Total Hemoglobin Sodium Chloride 95 L Carbon Dioxide Anion Gap 18.0 H BUN 66 H Creatinine 4.3 H Glucose 126 H Calcium 7.5 L Phosphorus 4.6 H AST Lactate Dehydrogenase 492 H Total Protein Albumin 2.8 L Albumin/Globulin Ratio 0.9 L Urine Protein 100 A Urine Glucose (UA) 50 A Urine Occult Blood 0.03 A Ur Leukocyte Esterase 75 A Urine RBC 3 H Urine WBC 34 H 12/27/16 12/27/16 12/27/16 13:15 04:10 04:10 RBC 2.86 L Hgb 8.3 L Hct 24.8 L Gran % 87.2 H Lymph % (Auto) 5.8 L Gran # Lymph # (Auto) 0.5 L ABG Methemoglobin VBG pH VBG pCO2 VBG pO2 VBG HCO3 VBG Total CO2 VBG O2 Saturation VBG Base Excess Carboxyhemoglobin Total Hemoglobin Sodium Chloride Carbon Dioxide 18 L 15 L Anion Gap 18.0 H 19.0 H BUN 68 H 66 H Creatinine 4.2 H 4.1 H Glucose 168 H 165 H Calcium 7.6 L 7.6 L Phosphorus 5.4 H AST Lactate Dehydrogenase 527 H Total Protein 5.8 L Albumin 2.8 L Albumin/Globulin Ratio 0.9 L Urine Protein Urine Glucose (UA) Urine Occult Blood Ur Leukocyte Esterase Urine RBC Urine WBC 12/26/16 12/26/16 12/26/16 23:00 21:37 17:14 RBC Hgb Hct Gran % Lymph % (Auto) Gran # Lymph # (Auto) ABG Methemoglobin 0.3 L VBG pH 7.23 L VBG pCO2 30.5 L VBG pO2 48 H VBG HCO3 12.4 L VBG Total CO2 13.3 L VBG O2 Saturation 76.6 H VBG Base Excess -14.0 L Carboxyhemoglobin 2.9 H Total Hemoglobin 8.8 L Sodium 129 L Chloride Carbon Dioxide 12 L 10 L* Anion Gap 21.0 H 20.0 H BUN 67 H 65 H Creatinine 4.2 H 4.0 H Glucose 167 H 131 H Calcium 7.8 L 8.1 L Phosphorus 6.0 H* AST 46 H Lactate Dehydrogenase 622 H Total Protein Albumin 3.1 L Albumin/Globulin Ratio 0.9 L Urine Protein Urine Glucose (UA) Urine Occult Blood Ur Leukocyte Esterase Urine RBC Urine WBC 12/26/16 12/26/16 17:14 04:15 RBC 3.12 L Hgb 9.1 L Hct 27.2 L Gran % 89.0 H Lymph % (Auto) 5.4 L Gran # 9.4 H Lymph # (Auto) 0.6 L ABG Methemoglobin VBG pH VBG pCO2 VBG pO2 VBG HCO3 VBG Total CO2 VBG O2 Saturation VBG Base Excess Carboxyhemoglobin Total Hemoglobin Sodium 131 L Chloride Carbon Dioxide 12 L Anion Gap 17.0 H BUN 64 H Creatinine 4.0 H Glucose 113 H Calcium 8.1 L Phosphorus AST Lactate Dehydrogenase Total Protein Albumin Albumin/Globulin Ratio Urine Protein Urine Glucose (UA) Urine Occult Blood Ur Leukocyte Esterase Urine RBC Urine WBC Meds: Medications Acetaminophen (Tylenol) 650 mg PO Q6HP PRN PRN Reason: PAIN/FEVER > 101 Hydrocodone Bitart/Acetaminophen ([place] 10/325mg) 0 tab PO Q4HP PRN PRN Reason: Pain Last Admin: 12/28/16 08:09 Dose: 1 tab Amlodipine Besylate (Norvasc) 10 mg PO DAILY [facility] Last Admin: 12/28/16 08:01 Dose: 10 mg Aspirin (Ecotrin) 325 mg PO BID [facility] Last Admin: 12/28/16 08:02 Dose: 325 mg Bisacodyl (Dulcolax) 10 mg PA Q2-3DAYS PRN PRN Reason: Constipation Calcium Carbonate/Glycine (Tums) 1,500 mg CHEWED TIDCC [facility] Last Admin: 12/28/16 13:16 Dose: 1,500 mg Dextrose (Dextrose 50%) 0 ml IV UD PRN PRN Reason: Hypoglycemia Diagnostic Test (Pha) (Accu-Chek) 1 each FS ACHS [facility] Last Admin: 12/28/16 13:18 Dose: 1 each Docusate Sodium (Colace) 100 mg PO BID [facility] Last Admin: 12/28/16 08:01 Dose: 100 mg Fish Oil (Fish Oil) 1,000 mg PO DAILY [facility] Furosemide (Lasix) 40 mg IV Q8 [facility] Last Admin: 12/28/16 06:36 Dose: 40 mg Furosemide (Lasix) 40 mg PO BIDD [facility] Glucose (Insta-Glucose) 15 gm PO PRN PRN PRN Reason: Hypoglycemia Hydralazine HCl (Apresoline) 50 mg PO DAILY [facility] Last Admin: 12/28/16 08:01 Dose: 50 mg Hydromorphone HCl (Dilaudid) 0 mg IV Q2HP PRN PRN Reason: Pain Potassium Chloride 20 meq/ (Dextrose) 260 mls @ 130 mls/hr IV PRN PRN PRN Reason: if K < 4 Insulin Human Lispro (Humalog) 0 unit SQ [facility] PRN Reason: Protocol Last Admin: 12/28/16 13:19 Dose: Not Given Magnesium Hydroxide (Milk Of Magnesia) 30 ml PO BIDP PRN PRN Reason: Constipation Metoprolol Tartrate (Lopressor) 25 mg PO BID [facility] Last Admin: 12/28/16 13:20 Dose: Not Given Ondansetron HCl (Zofran) 4 mg IV Q4HP PRN PRN Reason: Nausea And Vomiting Cinnamon Bard 500 Mg (Capsule) 1 dose PO DAILY [facility] Last Admin: 12/28/16 13:16 Dose: 1 dose Polyethylene Glycol (Miralax) 17 gm PO DAILYP PRN PRN Reason: Constipation Senna (Senokot) 2 tab PO HS [facility] Last Admin: 12/27/16 20:55 Dose: 2 tab Sodium Bicarbonate (Sodium Bicarbonate) 1,300 mg PO TID [facility] Last Admin: 12/28/16 08:01 Dose: 1,300 mg Sodium Chloride (Saline Flush) 10 ml IV Q8 [facility] Last Admin: 12/28/16 06:36 Dose: 10 ml Temazepam (Restoril) 15 mg PO HSP PRN PRN Reason: Insomnia Throat Lozenges (Cepacol) 1 lozenge PO PRN PRN PRN Reason: Sore Throat Vitamin D (Vitamin D3) 1,000 unit PO DAILY [facility] Last Admin: 12/28/16 08:01 Dose: 1,000 unit Vitamin E (Vitamin E) 400 unit PO DAILY [facility] Last Admin: 12/28/16 08:01 Dose: 400 unit - ABG Interpretation ABG results: 12/26/16 21:37 ABG Methemoglobin 0.3 L VBG pH 7.23 L VBG pCO2 30.5 L VBG pO2 48 H VBG HCO3 12.4 L VBG Total CO2 13.3 L VBG O2 Saturation 76.6 H VBG Base Excess -14.0 L Medical - PN: A/P - Time Spent With Patient Total time spent is greater than 50% in coordination of care (as documented) at patient's floor/unit and/or counseling patient: - Narrative A/P Narrative: A/P CKd stage 4 Right hip fracture s/p replacement Severe metabolic acidosis DM uncontrolled HTN HLD SVT abnl UA, UTI Plan Patient on metoprolol for now, will resume home meds at di/c Renal function is stable, nephrology consult appreciated Acidosis resolved, on oral bicarb, off bicarb drip. patient will need bicarbonate supplementation as discharge cxr shows atelectasis likely Patient ua suggetsive of uti, start on rocephin for now, culture sent Cover glucose with insulin if patietn allows, BP stable, continue hydralazine, on metoprolol for svt while inpatient. DVT ASA 325bid as per Ortho protocol Renal CArb consistent Diet. Plan for d/c to SNF in AM Medical - PN: Qual - VTE Deep Vein Thrombosis/Pulmonary Embolism Present on Admission: No
[2016-12-28] MEDS ORDERED: FUROSEMIDE 40 MG TABLET PO SCH (16:00)
--- NOTE | 2016-12-28 16:24 | Nephrology Progress Note ---
Subjective Patient information: Note initiated : 12/28/16 at 4:22 pm Service Date, if different from initiated Date: [] Patient: Juliann Maravilla 76 y/o F admitted on 12/24/16 for R Hip Pain/Right Femoral Neck Fracture. Chief Complaint: Had some tachycardia. She denies any complaints. Objective - Vital Signs Vital signs: Vital Signs Temp Pulse Pulse Resp BP Pulse Ox 12/28/16 16:00 97.6 F 16 145/74 98 12/28/16 12:00 98.8 F 121 H 18 131/74 88 L 12/28/16 10:00 90 12/28/16 08:00 121 H 93 12/28/16 07:30 78 20 97 12/28/16 07:12 98.6 F 18 140/87 97 12/28/16 06:00 97 12/28/16 04:55 77 18 140/78 97 12/28/16 04:45 147 H 16 149/88 98 12/28/16 03:45 97.5 F 76 18 124/71 98 12/28/16 02:59 154 H 12/28/16 02:56 75 18 133/74 97 12/28/16 02:40 82 18 135/79 2 L 12/28/16 02:00 97 12/28/16 01:20 74 16 130/75 96 12/28/16 01:15 157 H 16 157/97 96 12/28/16 00:30 97.6 F 91 H 16 161/86 97 12/28/16 00:00 96 12/27/16 22:48 97 12/27/16 20:00 99.5 F H 91 H 18 138/82 97 12/27/16 17:00 95 Intake and Output 12/28/16 12/28/16 12/28/16 05:59 13:59 21:59 Intake Total 1360 / 1360 380 / 380 Output Total 351 / 351 250 / 250 Balance 1009 / 1009 -250 / -250 380 / 380 Intake: IV 1000 / 1000 Sodium Bicarbonate Vial 150 Meq 1000 / 1000 In Dextrose 5% in Water 850 ml @ 150 mls/hr IV Q6H [facility] Rx#: [id number] Oral 360 / 360 380 / 380 Output: Void Amount 350 / 350 250 / 250 Urine/Stool Mix Other: Meal Lunch Percent of Meal Consumed 50% Feeding Ability Independent # Voids 1 Intake & Output: Intake & Output 12/28/16 12/28/16 12/28/16 05:59 13:59 21:59 Intake Total 1360 / 1360 380 / 380 Output Total 351 / 351 250 / 250 Balance 1009 / 1009 -250 / -250 380 / 380 Intake: IV 1000 / 1000 Sodium Bicarbonate Vial 150 Meq 1000 / 1000 In Dextrose 5% in Water 850 ml @ 150 mls/hr IV Q6H [facility] Rx#: [id number] Oral 360 / 360 380 / 380 Output: Void Amount 350 / 350 250 / 250 Urine/Stool Mix Other: Meal Lunch Percent of Meal Consumed 50% Feeding Ability Independent # Voids 1 - General Appearance General appearance: appears started age EENT: ATNC Neck: no JVD Respiratory: no kyphosis Cardiology: holosystolic murmur Gastrointestinal: normoactive bowel sounds - Lab 12/28/16 04:35 12/28/16 04:35 Most recent lab results Calcium 7.5 mg/dl (8.6-10.4) L 12/28/16 04:35 Phosphorus 4.6 mg/dL (2.7-4.5) H 12/28/16 04:35 Magnesium 1.9 mg/dL (1.6-2.5) 12/28/16 04:35 Assessment and Plan (1) ETHAN (acute kidney injury) Status: Acute Comment: ASSESSMENT AND PLAN: 1. Severe metabolic acidosis, secondary to advanced kidney disease and also surgical stress. The lactic acid level was 0.7. Her VBG shows a pH of 7.23. Her pCO2 was 48. Was started her on intravenous bicarbonate drip and she has done fairly well. Switched over to oral bicarbonate. 2. Chronic kidney disease with some deterioration, possibly related to surgery. Her blood pressures have been fairly stable. I will check an ultrasound of the kidneys. 3. Hypertension. Blood pressures are slightly high. I have started her on Lasix to help with her blood pressure. Having tachycardia. Will start oral potassium.
[2016-12-28] MEDS ORDERED: POTASSIUM CHLORIDE 20 MEQ TABLET PO ONE (16:45)
[2016-12-28] MEDS: cefTRIAXone 1 GM VIAL IV SCH (17:04)
[2016-12-28] MEDS: SENNOSIDES 1 TABLET PO SCH (21:09)
[2016-12-29 05:48] LABS: Basophils # (Auto) 0 K/mcL (0.0-0.3); Basophils % (Auto) 0.1 % (0.0-2.0); Eosinophils # (Auto) 0.2 K/mcL (0.0-0.7); Granulocytes % (Auto) 85.4 % (38.0-78.0); Lymphocytes # (Auto) 0.5 K/mcL (1.5-4.8); Lymphocytes % (Auto) 5.4 % (15.5-49.0); Mean Cell Volume 87.9 fL (80.0-100.0); Mean Corpuscular HGB Conc 33.4 g/dL (31.0-36.0); Mean Corpuscular Hemoglobin 29.3 pg (26.0-34.0); Monocytes # (Auto) 0.6 K/mcL (0.1-0.9); Monocytes % (Auto) 7.1 % (1.0-12.0); Platelet Count 201 K/mcL (140-440); RBC 2.91 M/mcL (4.00-5.20); Red Cell Distribution Width 14.2 % (11.5-14.5)
[2016-12-29 06:22] LABS: ALT/SGPT < 5 U/l (0-40); Albumin 2.7 gm/dL (3.2-5.2); Albumin/Globulin Ratio 0.8 (1.0-2.3); Alkaline Phosphatase 51 U/L (39-117); Bilirubin,Direct < 0.2 mg/dL (0.0-0.3); Blood Urea Nitrogen 69 mg/dl (8-23); Gamma Glutamyl Transpeptidase 10 U/L (5-36); Magnesium 1.8 mg/dL (1.6-2.5); Uric Acid 8.1 mg/dL (2.5-8.0)
[2016-12-29] MEDS ORDERED: POTASSIUM CHLORIDE 20 MEQ TABLET PO SCH (08:00)
--- NOTE | 2016-12-29 08:13 | Nephrology Progress Note ---
Subjective Patient information: Note initiated : 12/29/16 at 8:10 am Service Date, if different from initiated Date: [] Patient: Juliann Maravilla 76 y/o F admitted on 12/24/16 for R Hip Pain/Right Femoral Neck Fracture. Chief Complaint: Feels ok, no nausea or vomiting. Objective - Vital Signs Vital signs: Vital Signs Temp Pulse Resp BP Pulse Ox 12/29/16 04:00 16 154/81 97 12/29/16 02:00 99 12/29/16 00:39 16 143/75 95 12/29/16 00:00 97.6 F 17 153/76 96 12/28/16 22:38 16 115/62 96 12/28/16 22:00 96 12/28/16 20:35 98 12/28/16 20:00 97.1 F 16 147/69 96 12/28/16 16:00 97.6 F 121 H 16 145/74 98 12/28/16 14:00 98 12/28/16 12:00 98.8 F 121 H 18 131/74 88 L 12/28/16 10:00 90 Intake and Output 12/28/16 12/29/16 12/29/16 21:59 05:59 13:59 Intake Total 380 / 380 360 / 360 Balance 380 / 380 360 / 360 Intake: Oral 380 / 380 360 / 360 Other: Meal Lunch Percent of Meal Consumed 50% Feeding Ability Independent # Voids 2 # Bowel Movements 1 Weight 194 lb 8 oz Intake & Output: Intake & Output 12/28/16 12/29/16 12/29/16 21:59 05:59 13:59 Intake Total 380 / 380 360 / 360 Balance 380 / 380 360 / 360 Weight 194 lb 8 oz Intake: Oral 380 / 380 360 / 360 Other: Meal Lunch Percent of Meal Consumed 50% Feeding Ability Independent # Voids 2 # Bowel Movements 1 - General Appearance General appearance: well-developed EENT: ATNC Neck: no JVD Cardiology: no murmurs Gastrointestinal: normoactive bowel sounds Integumentary: no rash - Lab 12/29/16 04:00 12/29/16 04:00 Most recent lab results Calcium 7.5 mg/dl (8.6-10.4) L 12/29/16 04:00 Phosphorus 4.8 mg/dL (2.7-4.5) H 12/29/16 04:00 Magnesium 1.8 mg/dL (1.6-2.5) 12/29/16 04:00 Assessment and Plan (1) ETHAN (acute kidney injury) Status: Acute Comment: ASSESSMENT AND PLAN: 1. Severe metabolic acidosis, secondary to advanced kidney disease and also surgical stress. The lactic acid level was 0.7. Her VBG shows a pH of 7.23. Her pCO2 was 48. Was started her on intravenous bicarbonate drip and she has done fairly well. Switched over to oral bicarbonate. Bicarb is adequate. Will continue the same oral dose. 2. Chronic kidney disease with some deterioration, possibly related to surgery. Her blood pressures have been fairly stable. US of the kidneys did not show any obstruction. She has a large bladder and no post void done. 3. Hypertension. Blood pressures are slightly high. I have started her on Lasix to help with her blood pressure. Since the renal function is slightly worse, I will cut the dose to 40mg once a day. Having tachycardia. Will keep the oral potassium.
[2016-12-29] MEDS: 0.9 % SODIUM CHLORIDE 10 ML SYRINGE IV SCH (08:30)
[2016-12-29] MEDS: HYDROcodone/APAP 10/325MG TABLET PO PRN (08:40)
[2016-12-29] MEDS: hydrALAZINE 25 MG TABLET PO SCH (08:40)
[2016-12-29] MEDS: SODIUM BICARBONATE 650 MG TABLET PO SCH (08:40)
[2016-12-29] MEDS: cefTRIAXone 1 GM VIAL IV SCH (08:40)
[2016-12-29] MEDS: VITAMIN D3 1,000 UNIT TABLET PO SCH (08:41)
[2016-12-29] MEDS: INSULIN LISPRO 1 UNIT/0.01 ML UNIT SQ SCH (08:41)
[2016-12-29] MEDS: VITAMIN E (DL,TOCOPHERYL ACET) 400 UNIT CAPSULE PO SCH (08:41)
--- NOTE | 2016-12-29 08:55 | Discharge Summary ---
Medical - DS: Prov Patient information: Note initiated : 12/29/16 at 8:50 am Service Date, if different from initiated Date: [] Patient: Juliann Maravilla 76 y/o F admitted on 12/24/16 for R Hip Pain/Right Femoral Neck Fracture. Chief Complaint: [] Date of admission: 12/24/16 19:13 Discharge date: 12/29/16 Admitting clinician: Erik Jaimes Consults: 12/24/16 16:04 Consult to Physician [CONS] Stat Comment: Consulting Provider: Erik Jaimes Reason For Exam: Physician to Consult 12/24/16 16:05 Consult to Physician [CONS] Stat Comment: Consulting Provider: Char Norris Reason For Exam: Physician to Consult 12/26/16 21:40 Consult to Physician [CONS] Routine Comment: Consulting Provider: Quinn Shabazz Reason For Exam: Physician to Consult 12/26/16 21:41 Consult to Physician [CONS] Routine Comment: Consulting Provider: Salomon Davis Reason For Exam: Physician to Consult Discharging clinician: Quinn Shabazz Medical - DS: Meds - Discharge Medications Prescriptions: Aspirin [Ecotrin] 325 mg PO DAILY #14 tab.ec Hydrocodone/APAP 7.5/325Mg [[place] 7.5/325Mg] 1 - 2 tab PO Q4HP PRN #60 tab PRN Reason: Pain Sodium Bicarbonate 1,300 mg PO TID #180 tab Active and Home Medications: Home Medications Aspirin [Ecotrin] 81 mg PO DAILY 12/24/16 [History Confirmed 12/24/16 Last Taken Unknown] Cholecalciferol (Vitamin D3) [Vitamin D] 1,000 unit PO DAILY 12/24/16 [History Confirmed 12/24/16 Last Taken Unknown] Cinnamon Bark [Cinnamon] 500 mg PO DAILY 12/24/16 [History Confirmed 12/24/16 Last Taken Unknown] Vitamin E Mixed [Vitamin E] 400 unit PO DAILY 12/24/16 [History Confirmed Last Taken Unknown] amLODIPine [Norvasc] 10 mg PO DAILY 12/24/16 [History Confirmed 12/24/16 Last Taken Unknown] hydrALAZINE HCL [Hydralazine HCl] 50 mg PO DAILY 12/24/16 [History Confirmed 05/07 Last Taken Unknown] Aspirin [Ecotrin] 325 mg PO DAILY #14 tab.ec 12/26/16 [Rx Last Taken Unknown] Hydrocodone/APAP 7.5/325Mg [[place] 7.5/325Mg] 1 - 2 tab PO Q4HP PRN #60 tab 12/26 [Rx Last Taken Unknown] Medical - DS: Hosp Hospital course: Ms. Maravilla is a 76 year old Female presented to this hospital from outside facility, for right hip fracture. The patient had abnormal labs on presentation, with creat of 4.06, the patient underwent successful Right CLAY and is scheduled for discharge in AM to [facility] facility, The patient labs rechecked in the hospital showed creat of 4.0, bun of 64, K of 4.8, Medicine was consulted for further evaluation. The patient has a long standing history of CKD, based on her history and problem list it seems she has CKD stage 4, she is unaware of her kidney function levels, but has been following with Dr Davis (sulfonation equipment operator) in the past. She is not sure what her baseline kidney function is, but notes that she has been eating and drinking well and has no problems passing urine. The patient labs 1 year ago showed renal function creat of 2.99 and BUN of 51, the patient has ??DM, HTN as the likely risk factors. Chronic Kidney Disease: The patient CKD was complicated by Severe acidosis, needing IV bicarbonate therapy, the patient responded well to treatment and was transitioned to oral therapy, she is on 1300meq three times a day of sodium bicab at discharge as per nephrology recommendation. Patients labs show bicarb of 27 The patients creat at the time of discharge is 4.7, she was on lasix 40bid which is being cut back to 40 once daily. the patient will follow up with Dr Davis from nephrology in 1 week. SVT the patient had few runs of SVT, which would terminate spontaneously, pt was asymptomatic during these epsidoes, I started her on beta blockers with good response, but the patient is not keen on taking these medications after discharge, believe that the omega fish oik will help keep her rhythm under check. It seems that the patient does not believe in meds much and has a some vitamin pills and supplements she takes for her chronic medications. UTI: patient had low grade temp, and ua suggestive of UTI, started on rocephin while inpatient, will discharge on keflex for another 5 days. The patients right hip fracture was operated on by Dr Jaimes, and the patient will need ongoing rehab for same. The patient is on ASA 325BID for DVT prophylaxis as per ortho. She will need to transition back to asa 81 after she finishes her 4 week DVT prophylaxis regime. The patient will follow up with ortho after discharge. Dr Meera mulligan is listed as a PCP but the patient says there is no pcp in [place]. It seems that the patient will be managed and treated as swing bed patient in [facility], Dr Shannon was called and given a verbal handout,he graciously accepted to assume care for the patient. Discharge diagnosis: Hip Fracture, CKD, Acidosis. - Time Spent with Patient Total time spent providing and/or coordinating discharge services: Greater than 30 minutes Medical - DS: Exam - Constitutional Vitals: Vital Signs Temp Pulse Resp BP Pulse Ox 12/29/16 04:00 16 154/81 97 12/29/16 02:00 99 12/29/16 00:39 16 143/75 95 12/29/16 00:00 97.6 F 17 153/76 96 12/28/16 22:38 16 115/62 96 12/28/16 22:00 96 12/28/16 20:35 98 12/28/16 20:00 97.1 F 16 147/69 96 12/28/16 16:00 97.6 F 121 H 16 145/74 98 12/28/16 14:00 98 12/28/16 12:00 98.8 F 121 H 18 131/74 88 L 12/28/16 10:00 90 Intake and Output 12/28/16 12/29/16 12/29/16 21:59 05:59 13:59 Intake Total 380 / 380 360 / 360 Balance 380 / 380 360 / 360 Intake: Oral 380 / 380 360 / 360 Other: Meal Lunch Percent of Meal Consumed 50% Feeding Ability Independent # Voids 2 # Bowel Movements 1 Weight 194 lb 8 oz Additional comments: Constitutional; Afebrile, cooperative, alert, not in distress. Eyes- No icterus, , No periorbital swelling Ears- Ext ear normal, hearing normal to conversation. Neck- Midline trachea, supple Respiratory system: Air Entry equal on both sides, No crackles or wheezing, no rhonchi. CVS- Rate rhythm regular, S1,S2 heard, no gallop, no rub. Abdomen- Soft nontender abdomen, no organomegaly, no tenderness, no guarding or rigidity, BLEACHING SUPERVISOR- AOOx3, moving all extremities, no gross focal deficit noted. Medical - DS: Data Labs on day of discharge: Labs from last 24 hours 12/29/16 12/29/16 04:00 04:00 WBC 8.8 RBC 2.91 L Hgb 8.6 L Hct 25.6 L MCV 87.9 MCH 29.3 MCHC 33.4 RDW 14.2 Plt Count 201 MPV 8.6 Gran % 85.4 H Lymph % (Auto) 5.4 L P[place] % (Auto) 7.1 Eos % (Auto) 2.0 Baso % (Auto) 0.1 Gran # 7.5 Lymph # (Auto) 0.5 L [place] # (Auto) 0.6 Eos # (Auto) 0.2 Baso # (Auto) 0 Sodium 138 Potassium 4.0 Chloride 93 L Carbon Dioxide 27 Anion Gap 18.0 H BUN 69 H Creatinine 4.8 H GFR Calculation 8 Glucose 96 Uric Acid 8.1 H Calcium 7.5 L Phosphorus 4.8 H Magnesium 1.8 Total Bilirubin < 0.2 Direct Bilirubin < 0.2 GGT 10 AST 21 ALT < 5 Alkaline Phosphatase 51 Lactate Dehydrogenase 473 H Total Protein 5.9 Albumin 2.7 L Globulin 3.2 Albumin/Globulin Ratio 0.8 L Triglycerides 133 Medical - DS: A/P - Patient/Caregiver Discharge Instructions Activity: as per physical therapy Diet: Renal Additional Instructions: POD #2: Dressing changed by nurse and all drains have been removed. Follow up with Physical Therapy. Instructed on ROM protocol. Anticoagulation therapy risks and benefits explained. May shower with dressing covered or water proof dressing. If wound dressing becomes black, remove dressing. Pathology and risks explained. Follow up with our office in 2 weeks Follow up with your sulfonation equipment operator 1 week, Dr Davis Follow up with your PCP/ establish New PCP as soon as possible Keflex for additional 5 days OT/PT/ ST eval and treat Prescriptions: Aspirin [Ecotrin] 325 mg PO DAILY #14 tab.ec Hydrocodone/APAP 7.5/325Mg [[place] 7.5/325Mg] 1 - 2 tab PO Q4HP PRN #60 tab PRN Reason: Pain Other Amb Orders: Physical Therapy at Discharge - CLAY Location: Determined By Patient Toilet Riser Discharge Order Location: Determined By Patient Walker Location: Determined By Patient - Follow up Plan Disposition: [facility] Bed Prognosis: Fair Rehab Potential: Fair I certify that the patient requires SNF services: No Overall status at discharge: patient is progressing back to baseline Medical - DS: Qual - VTE Deep Vein Thrombosis/Pulmonary Embolism Present on Admission: No
[2016-12-29] MEDS ORDERED: FUROSEMIDE 40 MG TABLET PO SCH (09:00)
[2016-12-29] MEDS ORDERED: FISH OIL 1,000 MG CAPSULE PO SCH (09:00)
[2016-12-29] MEDS: DOCUSATE SODIUM 100 MG CAPSULE PO SCH (09:30)
[2016-12-29] MEDS: CALCIUM CARBONATE 500 MG TAB.CHEW CHEWED SCH (09:30)
[2016-12-29] MEDS: ASPIRIN 325 MG ENTERIC COATED TABLET PO SCH (09:30)
[2016-12-29] MEDS: METOPROLOL TARTRATE 25 MG TABLET PO SCH (09:31)
[2016-12-29] MEDS: amLODIPine 10 MG TABLET PO SCH (09:33)
--- NOTE | 2016-12-29 12:14 | Ultrasound Report ---
CLINICAL INFORMATION: History of urinary tract infection TECHNIQUE: Grayscale and color flow Doppler spectral imaging COMPARISON: None. FINDINGS: Examination is technically limited and of suboptimal quality. Right kidney measures 9.8 x 4.7 x 4.9 cm. There is no hydronephrosis. No detectable calculi. Renal cortex appears somewhat echogenic but is suboptimally visualized. There is a possible 1.8 cm hypoechoic but not sonolucent cortical mass in the mid to upper pole. This is not well visualized. CT scan or MRI scan may be helpful for further evaluation. Left kidney measures 10.3 x 5.4 x 4.7 cm. Left kidney is also suboptimally visualized. Left renal cortex appears somewhat echogenic suggesting medical renal disease. No hydronephrosis. There is a 5.6 cm simple cyst. No solid mass. Prevoid bladder volume measures 225 mL. Ureteral jets are not visualized. Patient was unable to void. No detectable bladder stone. A portion of the uterus was identified when scanning the bladder. Routine pelvic ultrasound was not performed. There is significant thickening of the endometrium. Endometrium measures 30 mm. This is abnormal for age. Findings may be due to endometrial hyperplasia but endometrial carcinoma is not excluded. No detectable endometrial fluid. No free pelvic fluid. IMPRESSION: 1. Suboptimal evaluation of the kidneys bilaterally. Probable increased cortical echogenicity consistent with medical renal disease 2. Possible 1.8 cm solid mass in the right kidney. This is not definite 3. No hydronephrosis 4. Markedly thickened endometrium is noted incidentally. Endometrial carcinoma is possible. Further evaluation is recommended. Interpreted and Authenticated by: Ramu Hidalgo 12/29/16
== END 2016-12-29 10:15 | disposition other institution (70) | DRG 470 ==
LOC: ED 15:28 → SUR 16:20 → MEDSUR 19:13 → ICU 12-26 20:32
PROVIDERS: ADMIT Orthopaedic Surgery; ATTEND Orthopaedic Surgery
PROC: HEMIHIP (2016-12-24 16:41)

== ENCOUNTER 2018-04-27 07:08 | Inpatient (IN) ==
[2018-04-25 14:18] LABS: Appearance,Urine CLOUDY; Bacteria,Urine 0 /hpf (0); Bilirubin,Urine NEG (NEG); Color,Urine YELLOW; Glucose,Urine (UA) NEGATIVE (NEG); Leukocyte Esterase,Urine 500 /uL (NEG); Mucus,Urine FEW /hpf (0); Protein,Urine >=500 mg/dL (NEG); Specific Gravity,Urine 1.013 (1.000-1.035); Urine Blood 0.03 mg/dL (<0.03); Urine RBC 38 /hpf (0-1); Urine Squamous Epithelial Cell 2 /hpf (0-4); Urine Transitional Epi Cells 2 /hpf (0-2); Urine WBC > 182 /hpf (0-4); Urobilinogen,Urine NEG (NEG)
[2018-04-25 15:09] LABS: Basophils # (Auto) 0 K/mcL (0.0-0.3); Basophils % (Auto) 0.3 % (0.0-2.0); Eosinophils # (Auto) 0.2 K/mcL (0.0-0.7); Eosinophils % (Auto) 2.3 % (0.0-7.0); Granulocytes % (Auto) 81.3 % (38.0-78.0); Lymphocytes # (Auto) 0.7 K/mcL (1.5-4.8); Lymphocytes % (Auto) 7.4 % (15.5-49.0); Mean Cell Volume 90.7 fL (80.0-100.0); Mean Corpuscular HGB Conc 32.3 g/dL (31.0-36.0); Monocytes # (Auto) 0.8 K/mcL (0.1-0.9); Monocytes % (Auto) 8.7 % (1.0-12.0); Platelet Count 370 K/mcL (140-440); RBC 2.83 M/mcL (4.00-5.20); Red Cell Distribution Width 18.1 % (11.5-14.5)
[2018-04-25 15:19] LABS: Blood Urea Nitrogen 39 mg/dl (8-23)
[2018-04-25 17:06] LABS: Hemoglobin A1C 5.3 % HGB (4.0-6.0)
[~2018-04-27 07:08] MED LIST: ceFAZolin 1 GM VIAL IV SCH
[2018-04-27 09:20] LABS: Appearance,Urine HAZY; Bacteria,Urine 0 /hpf (0); Bilirubin,Urine NEG (NEG); Color,Urine YELLOW; Glucose,Urine (UA) NEGATIVE (NEG); Leukocyte Esterase,Urine 250 /uL (NEG); Protein,Urine >=500 mg/dL (NEG); Specific Gravity,Urine 1.013 (1.000-1.035); Urine Blood 0.03 mg/dL (<0.03); Urine RBC 33 /hpf (0-1); Urine Squamous Epithelial Cell 1 /hpf (0-4); Urine Transitional Epi Cells 1 /hpf (0-2); Urine WBC > 182 /hpf (0-4); Urobilinogen,Urine NEG (NEG)
[2018-04-27] MEDS ORDERED: PROPOFOL 200 MG/20 ML VIAL IV ONE (11:20)
[2018-04-27] MEDS ORDERED: PHENYLEPHRINE 10 MG/ML VIAL IV ONE (11:20)
[2018-04-27] MEDS ORDERED: MIDAZOLAM 5 MG/5 ML VIAL IV ONE (11:20)
[2018-04-27] MEDS ORDERED: DEXAMETHASONE 10 MG/ML VIAL IV ONE (11:20)
[2018-04-27] MEDS ORDERED: LIDOCAINE HCL/PF 100 MG/5 ML SYRINGE IV ONE (11:20)
[2018-04-27] MEDS ORDERED: TRANEXAMIC ACID 1,000 MG/10 ML VIAL IV ONE ×2 (11:20→12:19)
[2018-04-27] MEDS ORDERED: GLYCOPYRROLATE 0.2 MG/ML VIAL IV ONE (11:20)
[2018-04-27] MEDS ORDERED: ONDANSETRON 4 MG/2 ML VIAL IV ONE (11:20)
[2018-04-27] MEDS ORDERED: KETAMINE 100 MG/ML ML IV ONE (11:20)
[2018-04-27] MEDS ORDERED: ROPIVACAINE HCL/PF 20 ML VIAL IJ ONE (11:20)
[2018-04-27] MEDS ORDERED: GENTAMICIN SULFATE 800 MG/20 ML VIAL IR ONE (11:38)
[2018-04-27] MEDS ORDERED: BUPIVACAINE 0.5% 50 ML VIAL IJ ONE (12:01)
[2018-04-27] MEDS ORDERED: BENZOCAINE/MENTHOL 1 LOZENGE PO PRN (12:19)
[2018-04-27] MEDS ORDERED: FLEETS ADULT ENEMA PR PRN (12:19)
[2018-04-27] MEDS ORDERED: HYDROcodone/APAP 10/325MG TABLET PO PRN (12:19)
[2018-04-27] MEDS ORDERED: BISACODYL 10 MG SUPP.RECT PR PRN (12:19)
[2018-04-27] MEDS ORDERED: MAGNESIUM HYDROXIDE 30 ML ORAL.SUSP PO PRN (12:19)
[2018-04-27] MEDS ORDERED: POLYETHYLENE GLYCOL 3350 17 GM PACKET PO PRN (12:19)
[2018-04-27] MEDS ORDERED: ONDANSETRON 4 MG/2 ML VIAL IV PRN (12:19)
--- NOTE | 2018-04-27 13:03 | Operative Note ---
DATE OF OPERATION: 04/27/2018 PREOPERATIVE DIAGNOSES: Chronic ulceration, right leg with peripheral vascular disease. POSTOPERATIVE DIAGNOSES: Chronic ulceration, right leg with peripheral vascular disease. OPERATION: Oxknj-[id number]-evwa amputation on the right. SURGEON: Juan Pablo Vasquez M.D. LEAD GAME DESIGNER: Gregory Ryan PA-C. ANESTHESIA: General done by Jez Soteol CRNA. TOURNIQUET TIME: 22 minutes. ESTIMATED BLOOD LOSS: 500 mL. SUMMARY OF PROCEDURE: General anesthesia was attained. The right leg was prepped and draped. A thigh-level tourniquet was put up. A modified fishmouth incision was made over the tibial diaphysis. This was taken down to the bone anteriorly by incising the muscle. An osteotomy was made in the tibia using the saw and a bevel taken off anteriorly. The fibula was osteotomized more proximal than the tibial cut. I then used a knife to bevel the posterior soft tissue flap. The popliteal artery bled significantly for 20 to 30 seconds, and this was ultimately clamped and then suture ligated. The sciatic nerve was identified and infiltrated with 10 mL of Marcaine and transected above the bone cut. The wound was copiously irrigated. The tourniquet was let down. Bleeding was well controlled. Two drill holes were made in the anterior tibia and the posterior fascia both superficial and deep, sutured to these drill holes with 0 Vicryl. The ends of the bones had been covered with bone wax. The subcutaneous tissue was closed in layers using 0 Vicryl and 2-0 Monocryl more superficially. The skin was closed with 2-0 Prolene and maricarmen. The medial saphenous nerve was blocked, as was the peroneal nerve as well. Total Marcaine used in the field was 20 mL. We then applied the _Provena wound V.A.C. This was opened and the foam placed. The superficial layer was placed over this and a good seal was obtained. We then activated the Prevena to suction. A posterior splint was placed as well. The sponge and needle count was correct. The patient tolerated the procedure well and was taken to the recovery room in stable condition. TJF:nelson Job ID: [id number] Doc ID: [id number] Juan Pablo Vasquez MD [facility]
[2018-04-27] MEDS ORDERED: 0.9 % SODIUM CHLORIDE 250 ML IV SCH (13:30)
[2018-04-27] MEDS: 0.45 % SODIUM CHLORIDE 1,000 ML IV SCH (13:33)
[2018-04-27] MEDS: 0.9 % SODIUM CHLORIDE 10 ML SYRINGE IV SCH ×2 (13:53→20:24)
[2018-04-27] MEDS: ASPIRIN 81 MG TAB.CHEW PO SCH (20:28)
[2018-04-27] MEDS: DOCUSATE SODIUM 100 MG CAPSULE PO SCH (20:28)
[2018-04-27] MEDS ORDERED: SENNOSIDES 1 TABLET PO SCH (21:00)
[2018-04-28] MEDS: 0.45 % SODIUM CHLORIDE 1,000 ML IV SCH (03:46)
[2018-04-28] MEDS: 0.9 % SODIUM CHLORIDE 10 ML SYRINGE IV SCH (05:19)
--- NOTE | 2018-04-28 07:35 | Discharge Summary ---
Providers - Providers Patient information: Note initiated : 04/28/18 at 7:33 am Service Date, if different from initiated Date: [] Patient: Juliann Maravilla 77 y/o F admitted on 04/27/18 for Rt Below Knee Amputation w/Application of Wound. Chief Complaint: [] Discharge date: 04/28/18 Hospitalization Hospital course: Patient was admitted after Right BKA for pain control and PT. She was discharged without any complications with wound vac in place. Discharge diagnosis: s/p right below knee amputation Exam - Exam Incision healing: Yes Incision draining: No Clean and dry: Yes Weight bearing status: none Ortho Discharge Plan - General - Patient Instructions Diet: Regular Diet Activity: activity as tolerated Dressing Care: Other (leave wound vac and splint in place until follow up next week.) - Follow Up Plan Follow Up Appointments: Gregory Ryan PA-C [Physician Literacy Specialist] - 05/05/18 Disposition: Home, Self-Care Prognosis: Good Rehab Potential: Good Pending Studies Resuscitation Status Full Code Diet Renal Diet Start Yadira Apr 7 1340 Aspirin (Aspirin) 81 mg PO BID [facility] Last Admin: 04/27/18 20:28 Dose: 81 mg Documented by: EMIL Docusate Sodium (Colace) 100 mg PO BID [facility] Last Admin: 04/27/18 20:28 Dose: 100 mg Documented by: EMIL Sodium Chloride (Sodium Chloride 0.45%) 1,000 mls @ 75 mls/hr IV .[id number] [facility] Last Admin: 04/28/18 03:46 Dose: 75 mls/hr Documented by: Infusion: 04/28/18 02:53 Dose: 75 mls/hr Documented by: Admin: 04/27/18 13:33 Dose: 75 mls/hr Documented by: [email or web address] Senna (Senokot) 2 tab PO HS [facility] Last Admin: 04/27/18 20:28 Dose: 2 tab Documented by: EMIL Sodium Chloride (Saline Flush) 10 ml IV Q8 [facility] Last Admin: 04/28/18 05:19 Dose: Not Given Documented by: Admin: 04/27/18 20:24 Dose: Not Given Documented by: Admin: 04/27/18 13:53 Dose: Not Given Documented by: [email or web address] Shift Summary 04/28/18 04:00 Shift Summary by Ramón Rios Pt has not slept tonight. She has denied pain or nausea all shift. RT BKA - splint & grace wrap -C,D,I W/ wound vac in place. 1/2 NS infusing to her RT F/A @ 75ml/hr. She has previous LT BKA w/ prosthesis @ bedside. No void this shift - dialysis port RT chest - she has dialysis M-W-. Last bladder scan @ 0205 was 313ml. VS - WNL on R.A.. Pt did receive 1 unit PRBC's yesterday for low post- op H&H. She is A&O x4, calm, pleasant, & cooperative. Initialized on 04/28/18 04:00 - END OF NOTE
[2018-04-28] MEDS ORDERED: VITAMIN D3 1,000 UNIT TABLET PO SCH (09:00)
[2018-04-28] MEDS ORDERED: VITAMIN B COMPLEX 1 CAPSULE PO SCH (09:00)
[2018-04-28] MEDS ORDERED: [UNRECOGNIZED DRUG - OTHER] PO SCH (09:00)
[2018-04-28] MEDS: ASPIRIN 81 MG TAB.CHEW PO SCH (09:22)
[2018-04-28] MEDS: DOCUSATE SODIUM 100 MG CAPSULE PO SCH (09:22)
--- NOTE | 2018-05-01 11:35 | Surgical Pathology Report ---
HISTOLOGY SPECIMEN MICROSCOPIC DIAGNOSIS EXTREMITY, RIGHT LOWER, [id number] AMPUTATION: -- GANGRENOUS ULCER, RIGHT GREAT TOE, WITH UNDERLYING ASSOCIATED ACUTE OSTEOMYELITIS. -- GANGRENOUS ULCERS, SECOND DIGIT, FOURTH DIGIT, POSTERIOR ANKLE/ACHILLES AND MEDIAL CALF. -- ANTERIOR AND POSTERIOR TIBIAL ARTERIES WITH SIGNIFICANT ATHEROSCLEROSIS, 75-90% OCCLUDED. -- SKIN, SOFT TISSUE AND BONE MARGINS VIABLE. (DMT:adj) GROSS DESCRIPTION Received fresh labeled right [id number] amputation, is a right lower extremity that is 45 cm from cut bone margin to heel with a mid calf diameter of 9.8 cm attached to a 22 cm long, 9 cm wide and up to 8.2 cm high foot. All five digits are in place. There are multiple open wounds and scabbed over areas. One involves the distal great toe and measures 5.5 cm from tip of toe to towards the foot and is up to 2.7 cm from medial to lateral. The toe nail plate is disassociated. Overlying the dorsal aspect of the second digit is a 1.2 x 1 cm area of quiroz-pink discoloration with early surface ulceration. Overlying the dorsal aspect of the fourth digit are two ulcers, 0.3 and 0.5 cm in greatest dimension. The plantar aspect of the foot is unremarkable. At the posterior aspect of the ankle, overlying the achilles, is an irregular 11.7 x 7.5 cm area of ulceration covered by an eschar which coveres mainly the posterior lateral aspect of the heel. On the medial calf is a 10.5 x 2.5 cm irregular area of shallow ulceration. This area of ulceration is nearest the skin and soft tissue margin which is 3.9 cm away from the edge of the lesion. The skin and soft tissue margins are set back from the bone margins by 4 to 5.5 cm. The soft tissue margins appear viable. On the lateral dorsal aspect of the foot is a well healed quiroz-white scar that is 3.2 x 1.4 cm. No additional skin lesions are seen. The anterior and posterior tibial arteries are dissected along their length. The posterior artery is heavily calcified and at its worst point is approximately 75% occluded. The anterior artery has a similar amount of calcification and is occluded approximately 75-90%. Metalizer sections are submitted following decalcification as follows: A1 - tibia margin; A2 - fibula margin; A3 - nearest skin and soft tissue margin; A4 - great toe distal ulcer and underlying bone; A5 - posterior heel ulcer with skin; A6 - central posterior ulcer; A7 - medial calf ulcer; A8 - posterior tibial artery; A9 - anterior tibial artery. Blocks A4, A8 and A9 are submitted for decalcification. (DMT:adj) Electronically Signed by: Julio Rutledge M.D.
== END 2018-04-28 11:20 | disposition home or self-care (01) | DRG 239 ==
LOC: MEDSUR 07:08
PROVIDERS: ADMIT Orthopaedic Surgery Foot and Ankle Surgery; ATTEND Orthopaedic Surgery Foot and Ankle Surgery

== ENCOUNTER 2018-05-25 10:22 | Inpatient (IN) ==
[2018-05-24 19:21] LABS: Basophils # (Auto) 0 K/mcL (0.0-0.3); Basophils % (Auto) 0.6 % (0.0-2.0); Eosinophils # (Auto) 0.2 K/mcL (0.0-0.7); Eosinophils % (Auto) 2.5 % (0.0-7.0); Lymphocytes # (Auto) 0.6 K/mcL (1.5-4.8); Lymphocytes % (Auto) 9.1 % (15.5-49.0); Mean Cell Volume 93.6 fL (80.0-100.0); Mean Corpuscular HGB Conc 32.4 g/dL (31.0-36.0); Monocytes # (Auto) 0.3 K/mcL (0.1-0.9); Monocytes % (Auto) 4.8 % (1.0-12.0); Platelet Count 169 K/mcL (140-440); RBC 3.42 M/mcL (4.00-5.20); Red Cell Distribution Width 18.6 % (11.5-14.5)
[2018-05-24 19:23] LABS: Blood Urea Nitrogen 26 mg/dl (8-23)
[~2018-05-25 10:22] MED LIST changes: -ceFAZolin 1 GM VIAL IV SCH; +ceFAZolin 2 GM in DEXTROSE 5% IN WATER 50 ML IV SCH
[2018-05-25] MEDS ORDERED: DEXAMETHASONE 4 MG/ML VIAL ONE (15:55)
[2018-05-25] MEDS ORDERED: ePHEDrine 50 MG/ML AMPUL IV ONE (15:55)
[2018-05-25] MEDS ORDERED: LIDOCAINE HCL/PF 100 MG/5 ML SYRINGE IV ONE (15:55)
[2018-05-25] MEDS ORDERED: MIDAZOLAM 2 MG/2 ML VIAL ONE (15:55)
[2018-05-25] MEDS ORDERED: PROPOFOL 200 MG/20 ML VIAL IV ONE (15:55)
[2018-05-25] MEDS ORDERED: PHENYLEPHRINE 10 MG/ML VIAL ONE (15:55)
[2018-05-25] MEDS ORDERED: ONDANSETRON 4 MG/2 ML VIAL ONE (15:55)
[2018-05-25] MEDS ORDERED: GENTAMICIN SULFATE 800 MG/20 ML VIAL IR ONE (16:43)
[2018-05-25] MEDS ORDERED: METHOCARBAMOL 1,000 MG/10 ML VIAL IV PRN ×2 (16:56→17:30)
[2018-05-25] MEDS ORDERED: TEMAZEPAM 15 MG CAPSULE PO PRN (16:56)
[2018-05-25] MEDS ORDERED: BENZOCAINE/MENTHOL 1 LOZENGE PO PRN ×2 (16:56→17:30)
[2018-05-25] MEDS ORDERED: POLYETHYLENE GLYCOL 3350 17 GM PACKET PO PRN (16:56)
[2018-05-25] MEDS ORDERED: MAGNESIUM HYDROXIDE 30 ML ORAL.SUSP PO PRN (16:56)
[2018-05-25] MEDS ORDERED: TRANEXAMIC ACID 1,000 MG/10 ML VIAL IV ONE (16:56)
[2018-05-25] MEDS ORDERED: BISACODYL 10 MG SUPP.RECT PR PRN (16:56)
[2018-05-25] MEDS ORDERED: ONDANSETRON 4 MG/2 ML VIAL IV PRN ×2 (16:56→17:30)
[2018-05-25] MEDS ORDERED: 0.9 % SODIUM CHLORIDE 1,000 ML IV SCH (17:00)
--- NOTE | 2018-05-25 17:04 | Brief Operative Note ---
Date of procedure: 05/25/18 Pre-op diagnosis: peripheral vascular disease Post-op diagnosis: same Procedure: above knee amputation Grafts/Implants: No Anesthesia: AMALIA Surgeon: Juan Pablo Vasquez Sign Wirer: Gregory Ryan Estimated blood loss (cc): 100 Tourniquet Time (Minutes): 16 Specimens Removed/Pathology: none sent Condition: stable Disposition: PACU
[2018-05-25] MEDS ORDERED: BUPIVACAINE 0.5% 50 ML VIAL IJ ONE (17:06)
[2018-05-25] MEDS ORDERED: FLUMAZENIL 0.1 MG/ML ML IV PRN (17:30)
[2018-05-25] MEDS ORDERED: ACETAMINOPHEN 1,000 MG/100 ML BOTTLE IV ONE (17:30)
[2018-05-25] MEDS ORDERED: NALOXONE HCL 0.4 MG/ML VIAL IV PRN (17:30)
[2018-05-25] MEDS ORDERED: fentaNYL 100 MCG/2 ML VIAL IV PRN (17:30)
[2018-05-25] MEDS ORDERED: IPRATROPIUM/ALBUTEROL 3 ML AMPUL.NEB NEB PRN (17:30)
[2018-05-25] MEDS ORDERED: LACTATED RINGERS 250 ML IV PRN (17:30)
[2018-05-25] MEDS ORDERED: LACTATED RINGERS 1,000 ML IV SCH (17:30)
[2018-05-25] MEDS: 0.9 % SODIUM CHLORIDE 10 ML SYRINGE IV SCH (20:14)
[2018-05-25] MEDS: DOCUSATE SODIUM 100 MG CAPSULE PO SCH (20:40)
[2018-05-25] MEDS ORDERED: SENNOSIDES 1 TABLET PO SCH (21:00)
[2018-05-25] MEDS: HYDROCODONE/APAP 7.5/325MG TABLET PO PRN (21:38)
[2018-05-26] MEDS: ceFAZolin 1 GM VIAL IV SCH ×2 (00:59→09:00)
[2018-05-26] MEDS: DOCUSATE SODIUM 100 MG CAPSULE PO SCH (08:59)
[2018-05-26] MEDS ORDERED: VITAMIN B COMPLEX 1 CAPSULE PO SCH (09:00)
[2018-05-26] MEDS ORDERED: [UNRECOGNIZED DRUG - OTHER] PO SCH (09:00)
[2018-05-26] MEDS ORDERED: RENAFOOD PO SCH (09:00)
[2018-05-26] MEDS ORDERED: [UNRECOGNIZED DRUG - OTHER] PO SCH (09:00)
[2018-05-26] MEDS: HYDROCODONE/APAP 7.5/325MG TABLET PO PRN (09:00)
[2018-05-26] MEDS ORDERED: VITAMIN D3 1,000 UNIT TABLET PO SCH (09:00)
[2018-05-26] MEDS: 0.9 % SODIUM CHLORIDE 10 ML SYRINGE IV SCH (09:02)
--- NOTE | 2018-05-26 09:42 | Orthopedic Progress Note ---
Subjective Patient information: Note initiated : 05/26/18 at 9:39 am Service Date, if different from initiated Date: [] Patient: Juliann Maravilla 77 y/o F admitted on 05/25/18 for Right Above Knee Amputation. Chief Complaint: [] Interval history: no complications overnight Objective Vital signs: Vital Signs Temp Pulse Resp BP BP Pulse Ox 05/26/18 06:27 98.4 F 18 151/78 98 05/26/18 04:25 97.9 F 93 H 20 157/90 96 05/25/18 23:48 97.8 F 91 H 166/84 93 05/25/18 21:15 94 H 155/85 95 05/25/18 20:15 97.7 F 93 H 18 150/90 94 05/25/18 19:45 90 145/80 93 05/25/18 19:15 89 163/87 93 05/25/18 18:30 97.9 F 90 18 163/85 94 05/25/18 18:15 97.9 F 91 H 18 169/85 94 05/25/18 18:00 98.0 F 88 15 157/72 96 05/25/18 17:45 97.9 F 88 16 155/75 96 05/25/18 17:40 88 10 L 162/80 100 05/25/18 17:35 87 12 158/73 100 05/25/18 17:30 98.2 F 86 13 148/72 100 05/25/18 12:00 97.8 F 72 16 126/57 99 05/25/18 10:40 97.8 F 82 18 151/81 99 Intake and Output 05/25/18 05/26/18 05/26/18 21:59 05:59 13:59 Intake Total 1200 350 Output Total 80 Balance 1200 270 Intake: IV 1200 50 Lactated Ringers 1,000 ml @ 20 1100 mls/hr IV .Q24H ALIYAH Rx#: [id number] Oral 300 Output: Drainage 50 RT AKA 50 Void Amount 30 Other: Weight 133 lb Intake & Output: Intake & Output 05/25/18 05/26/18 05/26/18 21:59 05:59 13:59 Intake Total 1200 350 Output Total 80 Balance 1200 270 Weight 133 lb Intake: IV 1200 50 Lactated Ringers 1,000 ml @ 20 1100 mls/hr IV .Q24H ALIYAH Rx#: [id number] Oral 300 Output: Drainage 50 RT AKA 50 Void Amount 30 Incision: Yes clean and dry Neurological exam IM: Yes oriented X3 - Labs CBC & BMP: 05/26/18 04:35 05/24/18 16:12 Labs: 05/26/18 05/24/18 04:35 16:12 Hgb 10.4 L Hct 29.0 L 32.0 L Assessment and Plan (1) Above knee amputation of right lower extremity patient doing well. Mimimal bleeding overnight. Save for discharge Status: Acute
--- NOTE | 2018-05-26 09:57 | Discharge Summary ---
Providers - Providers Patient information: Note initiated : 05/26/18 at 9:55 am Service Date, if different from initiated Date: [] Patient: Juliann Maravilla 77 y/o F admitted on 05/25/18 for Right Above Knee Amputation. Chief Complaint: [] Date of admission: 05/25/18 Discharge date: 05/26/18 Attending physician: Juan Pablo Vasquez Hospitalization Hospital course: admitted for AKA. uncomplicatwed surgery, stable postop Good support vat home Discharge diagnosis: amputation Procedures: above knee amputation Exam - Exam Clean and dry: Yes Weight bearing status: none Ortho Discharge Plan - General - Patient Instructions Diet: Renal Patient Education: Above the Knee Amputation (DC) - Problem Maintenance (1) Above knee amputation of right lower extremity Status: Acute - Follow Up Plan Follow Up Appointments: Gregory Ryan PA-C [Physician Web Press Roll Tender] - 05/31/18 Disposition: Home, Self-Care Prognosis: Fair Rehab Potential: Good I certify that the patient requires SNF services: No Pending Studies Resuscitation Status Full Code Diet Regular Diet Start Yadira May 4 Dinner Hydrocodone Bitart/Acetaminophen (Ashley 7.5/325mg) 0 tab PO Q4HP PRN PRN Reason: PAIN LEVEL 3-6 Last Admin: 05/26/18 09:00 Dose: 1 tab Documented by: Admin: 05/25/18 21:38 Dose: 1 tab Documented by: BAKARI Docusate Sodium (Colace) 100 mg PO BID [facility] Last Admin: 05/26/18 08:59 Dose: 100 mg Documented by: Admin: 05/25/18 20:40 Dose: 100 mg Documented by: BAKARI Sodium Chloride (Sodium Chloride 0.9%) 1,000 mls @ 40 mls/hr IV .Q24H [facility] Last Admin: 05/25/18 19:17 Dose: 40 mls/hr Documented by: BAKARI Morphine Sulfate (Morphine) 2 - 4 mg IV Q1HP PRN PRN Reason: PAIN LEVEL > 6 Last Admin: 05/25/18 20:09 Dose: 2 mg Documented by: BAKARI Cardiotrophin Pmg 1 dose PO DAILY [facility] Last Admin: 05/26/18 09:05 Dose: Not Given Documented by: DAKOTAH Miller Oil 1 dose PO DAILY [facility] Last Admin: 05/26/18 09:05 Dose: Not Given Documented by: DAKOTAH Renafood 1 dose PO DAILY [facility] Last Admin: 05/26/18 09:05 Dose: Not Given Documented by: DAKOTAH Senna (Senokot) 2 tab PO HS [facility] Last Admin: 05/25/18 20:40 Dose: 2 tab Documented by: BAKARI Sodium Chloride (Saline Flush) 10 ml IV Q8 [facility] Last Admin: 05/26/18 09:02 Dose: 10 ml Documented by: Admin: 05/25/18 20:14 Dose: 10 ml Documented by: BAKARI Vitamin B Complex (Vitamin B Complex) 1 cap PO DAILY [facility] Last Admin: 05/26/18 09:05 Dose: Not Given Documented by: DAKOTAH Vitamin D (Vitamin D3) 1,000 unit PO DAILY [facility] Last Admin: 05/26/18 09:05 Dose: Not Given Documented by: DAKOTAH Shift Summary 05/26/18 05:29 Shift Summary by Tee Vazquez Addendum entered by Tee Vazquez R.N. 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 Pt voided this morning in bedpan 30mL; PVR 393mL; did not straight cath at this time; came from home with her ; will update at bedside. Initialized on 05/26/18 05:29 - END OF NOTE
--- NOTE | 2018-05-26 10:23 | Operative Note ---
DATE OF OPERATION: 05/25/2018 PREOPERATIVE DIAGNOSES: Necrosis, recently done mjbdo-orw-yhga amputation. POSTOPERATIVE DIAGNOSES: Necrosis, recently done xtkbz-wgr-zccb amputation. OPERATION: Right ybhew-cnp-nwvk amputation. SURGEON: Juan Pablo Vasquez M.D. RURAL MAIL CONTRACTOR: Gregory Ryan PA-C. ANESTHESIA: General. TOURNIQUET TIME: 16 minutes. BLOOD LOSS: 100 mL. SUMMARY OF PROCEDURE: General anesthesia was attained. The right leg was prepped and draped. A sterile thigh tourniquet was put up. A fishmouth incision was made around the distal femur. This was taken down sharply to bone. The bone cut was planned to be about 10 cm above the knee joint. I then used a saw to osteotomize the femur and removed the distal piece. The tourniquet was let down. The popliteal artery with a stent in it was identified. The stent was removed. The artery was suture ligated x2. The wound was irrigated. There was no abscess in the area. The superficial and anterior fascia were closed with a running 0 locking Vicryl. The subcutaneous tissue was closed with buried Monocryl. The skin was closed with a combination of simple sutures and maricarmen. The area was infiltrated with 30 mL of Marcaine for postoperative pain relief. A sterile compressive dressing was applied. A drain was used. Of note, prior to closing we did put bone wax on the distal femur. We also did a myodesis of the superficial fascia to the anterior femur through drill holes. The suture that was used was 0 Vicryl. TJF:nelson Job ID: [id number] Doc ID: [id number] Juan Pablo Vasquez MD
--- NOTE | 2018-06-01 14:33 | Surgical Pathology Report ---
HISTOLOGY SPECIMEN MICROSCOPIC DIAGNOSIS LEG, RIGHT KNEE AND STUMP, ABOVE THE KNEE AMPUTATION: -- GANGRENOUS ULCERATION OF INCISION SITE WITH SEVERE ACUTE/CHRONIC INFLAMMATION, NECROSIS, HEMORRHAGE AND FOREIGN BODY TYPE GIANT CELLS. -- SECTIONS OF POPLITEAL ARTERY WITH SIGNIFICANT ATHEROSCLEROSIS AND MODERATE LUMINAL NARROWING (UP TO 50%). -- CUTANEOUS AND SKELETAL MUSCLE MARGINS OF RESECTION APPEAR VIABLE. (ACP:ashli) GROSS DESCRIPTION The specimen received as right above the knee amputation and consists of an amputated leg that includes a portion of femur bone, knee and stump. The prior below the knee amputation appears to be somewhat recent, and has a healing incision with brown areas of discoloration, pus, edema and erythema. There is an irregular area of erosion on the stump tip that measures 10.0 cm in length and varies in width from 1.5 to 1.0 cm. Areas of ecchymosis, hemorrhage and edema around the incision line measure up to 8.0 x 11.0 cm. From the tip of the stump to the cutaneous margin of resection, the distance is 18.5 on the anterior half and 9.0 on the posterior half. The popliteal vessel is easily visible. The bone and associated soft tissue extend beyond the cutaneous and soft tissue margin resection by 6.5 cm. The segment of femur measures 7.0 cm in length and has a diameter at the margin area of resection of 3.0 cm. Section of the popliteal vessels reveals prominent areas of calcification and mild thickening of the wall. No severe areas of luminal narrowing are identified. No thrombi are seen. The skeletal muscle of the upper calf appears pale. No mass lesions are seen. Sections submitted according to the following slide paula: A1 - prior incision site with areas of ulcer; A2 - popliteal vessels (after decalcification); A3 - skin and skeletal muscle from margin of resection. (ACP:ashli) Electronically Signed by: Ramirez Menchaca M.D.
== END 2018-05-26 10:58 | disposition home or self-care (01) | DRG 239 ==
LOC: MEDSUR 10:22
PROVIDERS: ADMIT Orthopaedic Surgery Foot and Ankle Surgery; ATTEND Orthopaedic Surgery Foot and Ankle Surgery